=== PATIENT | female | born 1970 | race Hispanic/Latino ===

== ENCOUNTER 2018-11-16 15:27 | Emergency (ER) | payer SELFPAY ==
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
[2018-11-16 17:13] LABS: Absolute Lymphocytes (CBC) 2.3 K/uL (0.7-4.9); Absolute Neutrophil 8.8 K/uL (1.8-8.0); Basophils % 0.5 % (0-1.3); Eosinophils % 0.3 % (0-4.4); Hematocrit 42.8 % (36.0-45.0); Lymphocytes % 18.7 % (15.3-44.8); MPV 8.4 fL (7.6-11.3); Monocytes % 8.3 % (3.3-12.3); RBC Red Blood Cell Count 4.32 M/uL (3.86-4.86)
--- NOTE | 2018-11-16 17:18 | RAD REPORT ---
EXAM DESCRIPTION: RAD - Hand Right 3 View - 11/16/2018 4:44 pm CLINICAL HISTORY: Right hand pain status post injury FINDINGS: No fracture or dislocation is seen.
[2018-11-16 17:26] LABS: BUN Blood Urea Nitrogen 6 mg/dL (7-18); Bicarbonate 27 mmol/L (21-32); Glucose Level 83 mg/dL (74-106); Potassium 3.6 mmol/L (3.5-5.1); Sodium Level 140 mmol/L (136-145)
[2018-11-16] MEDS ORDERED: LIDOCAINE 1% W/EPI 1:100,000 MDV 50 ML VIAL ONE (17:30)
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
[2018-11-16] MEDS ORDERED: ONDANSETRON 4 MG/2 ML VIAL ONE (17:48)
[2018-11-16] MEDS ORDERED: FENTANYL CITR 100 MCG/2 ML ONE (17:48)
== END 2018-11-16 18:18 | disposition home or self-care (01) ==
LOC: ER 15:27
DX: S60.221A Contusion of right hand, initial encounter (principal); S01.01XA Laceration without foreign body of scalp, initial encounter; S20.419A Abrasion of unspecified back wall of thorax, initial encounter; S00.31XA Abrasion of nose, initial encounter; Y04.8XXA Assault by other bodily force, initial encounter; Z72.0 Tobacco use
CPT/HCPCS: 36415; 70450; 72125; 80048; 80320; 85025; 99285; J2405; J3010

== ENCOUNTER 2019-03-03 13:04 | Emergency (ER) | payer SELFPAY ==
--- OUTSIDE RECORDS SUMMARY | 2019-03-03 13:07 | XMS REPORT ---
:1970 Author Organization [facility] Address [address] [place] [address] [address] [place] [address] Care Team Providers Name Role Phone Unavailable Unavailable Unavailable Problems This patient has no known problems. Allergies, Adverse Reactions, Alerts This patient has no known allergies or adverse reactions. Medications This patient has no known medications.
[2019-03-03 13:37] LABS: Urine Blood 1+ (NEG); Urine Glucose NEGATIVE (NEG); Urine Protein NEGATIVE (NEG); Urine Specific Gravity <1.005 (1.005-1.030)
[2019-03-03 13:50] LABS: Barbiturates NEGATIVE (NEGATIVE); Benzodiazepines POSITIVE (NEGATIVE); Cocaine NEGATIVE (NEGATIVE); METHAMPHETAM POSITIVE (NEGATIVE); Methadone NEGATIVE (NEGATIVE); Opiates NEGATIVE (NEGATIVE); Phencyclidine NEGATIVE (NEGATIVE); THC Cannibis NEGATIVE (NEGATIVE)
[2019-03-03 13:51] LABS: Protime INR 0.9
[2019-03-03 13:56] LABS: Absolute Lymphocytes (CBC) 2.7 K/uL (0.7-4.9); Absolute Monocytes 0.5 K/uL (0.1-1.3); Absolute Neutrophil 3.4 K/uL (1.8-8.0); Basophils % 0.5 % (0-1.3); Eosinophils % 0.4 % (0-4.4); Hematocrit 39.9 % (36.0-45.0); Lymphocytes % 40.7 % (15.3-44.8); MPV 8.5 fL (7.6-11.3); Monocytes % 7.9 % (3.3-12.3); RBC Red Blood Cell Count 4.11 M/uL (3.86-4.86)
--- NOTE | 2019-03-03 14:45 | RAD REPORT ---
EXAM DESCRIPTION: CT - Head Brain Wo Cont - 03/03/2019 2:23 pm CLINICAL HISTORY: H unresponsive COMPARISON: None. TECHNIQUE: Computed axial tomography of the head was obtained. IV contrast was not requested. All CT scans are performed using dose optimization technique as appropriate and may include automated exposure control or mA/KV adjustment according to patient size. FINDINGS: An intracranial bleed is not seen . The ventricles are normal in caliber. No extra-axial fluid collection is noted. Fluid within the sinuses/ mastoids is not seen. IMPRESSION: No acute intracranial abnormality is seen. If patient's symptoms persist MRI of the bra in would be recommended.
[2019-03-03 15:15] LABS: ALT/SGPT 32 U/L (12-78); AST/SGOT 6 U/L (15-37); Albumin 3.7 g/dL (3.4-5.0); Alkaline Phosphatase 53 U/L (45-117); BUN Blood Urea Nitrogen 8 mg/dL (7-18); Bicarbonate 27 mmol/L (21-32); Bilirubin Direct < 0.1 mg/dL (0-0.2); Bilirubin Total 0.2 mg/dL (0.2-1.0); Glucose Level 80 mg/dL (74-106); Potassium 3.3 mmol/L (3.5-5.1); Protein, Total 7.1 g/dL (6.4-8.2); Sodium Level 143 mmol/L (136-145)
[2019-03-03] MEDS ORDERED: IBUPROFEN 200 MG TAB PO ONE (17:38)
--- NOTE | 2019-03-03 17:46 | EKG ---
Test Date: 2019-03-03 Test Time: 13:11:52 Roving Inspector: JORGE-V MEASUREMENT RESULTS: Intervals: Rate: 90 CO: 160 QRSD: 104 QT: 362 QTc: 442 [place]: P: 59 CO: 160 QRS: 73 T: 47 INTERPRETIVE STATEMENTS: Normal sinus rhythm Normal ECG Compared to ECG 04/20/2010 12:29:40 Sinus arrhythmia no longer present Electronically Signed On 03-03-19 17:45:53 CDT by Eduard Vee
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
--- NOTE | 2019-03-03 18:01 | EDPHYS ---
Physician Documentation [facility] Name: Debo Foster Age: 48 yrs Sex: Female : 1970 Arrival Date: 03/03/2019 Time: 13:13 Bed 3 Private MD: ED Physician Warner Jansen HPI: 03/03 13:20 This 48 yrs old Female presents to ER via EMS with complaints of Unresponsive. kdr 13:20 The patient presents with decreased responsiveness. Onset: The symptoms/episode kdr began/occurred at an unknown time. Possible causes: CVA or TIA, alcohol, head injury, seizure, sepsis. Current symptoms: In the emergency department the patient's symptoms are unchanged from the initial presentation. Patient's baseline: Unknown. It is unknown whether or not the patient has had similar symptoms in the past. It is unknown whether or not the patient has recently seen a physician. The patient was found unresponsive by a dumpster with alcohol bottles nearby. The patient was previously unknown to the EMS crew. BGL 107, no response to nasal Narcan. Pupils pinpoint. No obvious signs of trauma. Historical: - Allergies: 13:19 Hydrocodone-Acetaminophen; ss - Home Meds: 13:19 Unable to obtain [Active]; ss - PMHx: 13:19 Unable to obtain; ss - PSHx: 13:19 Knee surgery; wrist; ss - Immunization history:: Adult Immunizations unknown. - Social history:: Smoking status: unknown. - Ebola Screening: : Unable to complete screening because. ROS: 13:20 Constitutional: Unable to assess due to AMS kdr 13:20 Unable to obtain ROS due to obtunded state. Exam: 13:20 Constitutional: This is a well developed, well nourished patient who is unresponsive kdr Head/Face: Normocephalic, atraumatic. 13:20 Eyes: Pupils: constricted, pinpoint. Vital Signs: 13:19 BP 102 / 69; Pulse 91; Resp 17; Pulse Ox 97% ; ss 14:02 BP 99 / 69; Pulse 88; Resp 21; Pulse Ox 98% on R/A; hb 15:00 BP 102 / 80; Pulse 94; Resp 20; Pulse Ox 99% on R/A; hb 17:00 BP 116 / 74; Pulse 82; Resp 16; Pulse Ox 99% on R/A; hb MDM: 18:00 Patient medically screened. kdr 18:11 Data reviewed: vital signs, nurses notes, lab test result(s), radiologic studies. kdr Counseling: I had a detailed discussion with the patient and/or guardian regarding: the historical points, exam findings, and any diagnostic results supporting the discharge/admit diagnosis, lab results, radiology results, the need for outpatient follow up. 03/03 13:19 Order name: Acetaminophen kdr 03/03 13:19 Order name: Basic Metabolic Panel kdr 03/03 13:19 Order name: CBC with Diff; Complete Time: 14:33 kdr 03/03 13:19 Order name: ETOH Level; Complete Time: 14:33 kdr 03/03 13:19 Order name: Hepatic Function kdr 03/03 13:19 Order name: PT-INR; Complete Time: 14:33 kdr 03/03 13:19 Order name: Ptt, Activated; Complete Time: 14:33 kdr 03/03 13:19 Order name: Salicylate; Complete Time: 14:33 kdr 03/03 13:19 Order name: Urine Drug Screen; Complete Time: 14:33 kdr 03/03 13:19 Order name: Lactate; Complete Time: 14:33 kdr 03/03 13:19 Order name: Procalcitonin; Complete Time: 14:33 kdr 03/03 13:19 Order name: Blood Culture Adult (2) kdr 03/03 13:28 Order name: Test, Serum; Complete Time: 14:33 bd 03/03 13:29 Order name: Urine Dipstick--Ancillary (enter results); Complete Time: 14:33 bd 03/03 13:19 Order name: EKG; Complete Time: 13:20 kdr 03/03 13:19 Order name: EKG - Nurse/Tech; Complete Time: 13:45 kdr 03/03 13:19 Order name: IV Saline Lock; Complete Time: 13:45 kdr 03/03 13:19 Order name: Labs collected and sent; Complete Time: 13:46 kdr 03/03 13:19 Order name: Urine Dipstick-Ancillary (obtain specimen); Complete Time: 13:46 kdr 03/03 13:19 Order name: CT Head Brain wo Cont kdr 03/03 16:30 Order name: Diet Regular; Complete Time: 16:31 ss Administered Medications: 17:32 Drug: Motrin 600 mg Route: PO; hb 18:30 Follow up: Response: No adverse reaction; Pain is decreased hb Disposition: 03/03/19 18:00 Discharged to Home. Impression: Altered mental status, unspecified - Resolved, Poly substance abuse. - Condition is Stable. - Discharge Instructions: Alcohol Intoxication, Mbmz-if-Yvtj, Alcohol Abuse and Nutrition, Alcohol Withdrawal, Uxox-st-Idzp. - Prescriptions for Ibuprofen 600 mg Oral Tablet - take 1 tablet by ORAL route every 6 hours As needed take with food; 12 tablet. - Medication Reconciliation Form, Thank You Letter form. - Follow up: Private Physician; When: 2 - 3 days; Reason: If symptoms return, Further diagnostic work-up, Recheck today's complaints, Continuance of care, Re-evaluation by your physician. - Problem is new. - Symptoms have improved. Signatures: Dispatcher [employer] EDMS Warner Jansen MD MD kdr Radha Mireles RN RN Gillian Faith RN RN Corrections: (The following items were deleted from the chart) 18:42 18:00 03/03/2019 18:00 Discharged to Home. Impression: Altered mental status, hb unspecified - Resolved; Poly substance abuse. Condition is Stable. Forms are Medication Reconciliation Form, Thank You Letter, Antibiotic Education, Prescription Opioid Use. Follow up: Private Physician; When: 2 - 3 days; Reason: If symptoms return, Further diagnostic work-up, Recheck today's complaints, Continuance of care, Re-evaluation by your physician. Problem is new. Symptoms have improved. kdr
== END 2019-03-03 18:42 | disposition home or self-care (01) ==
LOC: ER 13:04
DX: R41.82 Altered mental status, unspecified (principal); Z88.5 Allergy status to narcotic agent; F19.10 Other psychoactive substance abuse, uncomplicated
CPT/HCPCS: 36415; 51702; 70450; 80048; 80076; 80307; 80320; 80329; 81003; 83605; 84145; 84703; 85025; 85610; 85730; 87040; 93005; 99291; 99292

== ENCOUNTER 2022-09-11 21:06 | Emergency (ER) | payer SELFPAY ==
--- OUTSIDE RECORDS SUMMARY | 2022-09-11 21:09 | XMS REPORT | Continuity of Care Document ---
:[address] [facility] t Address [address] [place] [address] Care Team Providers Name Role Phone PCP, PATIENT DOES NOT HAVE A Primary Care Physician Unavaila ble Doctor Unassigned, John Day Attending Clinician Unavailable LADI GONZALES Attending Clinician Unavailable Ladi Gonzales MD Attending Clinician MICHAEL JULIEN Attending Clinician Unavailable Michael Dee Attending Clinician JONH THOMPSON Attending Clinician Unavailable RONAL GIBBS Attending Clinician Unavailable KIKA CAMPOS Attending Clinician Unavailable FORREST MASCORRO Attending Clinician Unavailable VELASQUEZ NOLASCO Attending Clinician Unavailable Tosin GOODWIN Attending Clinician Unavailable MICHAEL JULIEN Admitting Clinician Unavailable JONH THOMPSON Admitting Clinician Unavailable RONAL GIBBS Admitting Clinician Unavailable FORREST MASCORRO Admitting Clinician Unavailable VELASQUEZ NOLASCO Admitting Clinician Unavailable Tosin GOODWIN Admitting Clinician Unavailable Payers Payer Name Policy Type Policy Number Effective Date Expiration Date S ource Problems Condition Condition Condition Status Onset Resolution Last Treating Co mments Source Name Details Category Date Date Treatment Clinician Date Diverticul Diverticul Disease Active U nivers itis itis 3-10 ity of 00:00: [address] Allergies, Adverse Reactions, Alerts Allergy Allergy Status Severity Reaction(s) Onset Inactive Treating Comm ents Source Name Type Date Date Clinician NO KNOWN Drug Active Univers ALLERGIE Class ity of S [facility] Social History Social Habit Start Date Stop Date Quantity Comments Source Exposure to Not sure University of SARS-CoV-2 [place] [facility] (event) Branch Alcohol intake 2021-12-14 2021-12-14 Ex-drinker University 00:00:00 00:00:00 (finding) [facility] Tobacco use and 2021-02-01 2021-02-01 Never used Universit y of exposure 00:00:00 00:00:00 [facility] Sex Assigned At [birth year] Universit y of 00:00:00 00:00:00 [facility] Smoking Status Start Date Stop Date Source Former smoker 2021-02-01 00:00:00 2021-02-01 00:00:00 [facility] Medications Ordered Filled Start Stop Current Ordering Indication Dosage Frequency Signature Comments Components Source Medication Medication Date Date Medication? Clinician (SIG) Name Name CHLORPHENIR Yes 4mg Take 4 mg U nivers AMINE 3-13 by mouth 2 ity of MALEATE 12:08: (two) [place] ORAL 49 times Medical daily. Branch CHLORPHENIR Yes 4mg Take 4 mg U nivers AMINE 3-13 by mouth 2 ity of MALEATE 12:08: (two) [place] ORAL 49 times Medical daily. Branch CHLORPHENIR 0 Yes 4mg Take 4 mg U nivers AMINE 3-13 by mouth 2 ity of MALEATE 12:08: (two) [place] ORAL 49 times Medical daily. Branch CHLORPHENIR Yes 4mg Take 4 mg U nivers AMINE 3-13 by mouth 2 ity of MALEATE 12:08: (two) [place] ORAL 49 times Medical daily. Branch lisinopriL Yes [id number] 10mg Take 1 Univers 10 mg 3-13 tablet by ity of tablet 00:00: mouth at [place] [address] bedtime. Medical Branch lisinopriL 2020-0 Yes [id number] 10mg Take 1 Univers 10 mg 3-13 tablet by ity of tablet 00:00: mouth at [place] [address] bedtime. Medical Branch lisinopriL 2020-0 Yes [id number] 10mg Take 1 Univers 10 mg 3-13 tablet by ity of tablet 00:00: mouth at [place] [address] bedtime. Medical Branch lisinopriL Yes [id number] 10mg Take 1 Univers 10 mg 3-13 tablet by ity of tablet 00:00: mouth at [place] 00 bedtime. Medical [place] Vital Signs Vital Name Observation Time Observation Value Comments Source Systolic blood 2021-12-14 15:27:00 124 mm[Hg] Univer sity of pressure [facility] Diastolic blood 2021-12-14 15:27:00 88 mm[Hg] Unive rsity of [facility] Heart rate 2021-12-14 15:27:00 100 /min [facility] Respiratory rate 2021-12-14 15:27:00 18 /min [facility] weight 2021-12-14 15:27:00 56.7 kg [facility] BMI 2021-12-14 15:27:00 24.41 kg/m2 [facility] Oxygen saturation in 2021-12-14 15:27:00 99 /min [facility] Arterial blood by [facility] Pulse oximetry [place] Procedures Procedure Date / Time Performing Clinician Source Performed AUTHORIZATION FOR 2022-01-23 06:01:00 Doctor Unassigned, No [facility] OP CLINIC NOTES/CONSULTS 2021-12-14 06:01:00 Doctor Unassigned, No [facility] Encounters Start End Encounter Admission Attending Care Care Encounter Source Date/Time Date/Time Type Type Clinicians Facility Department ID 2022-01-23 2022-01-23 Orders Doctor DIAS [id number] Univers 00:00:00 00:00:00 Only Unassigned, MISAEL [id number] ity [facility] [id number] Reji as [phone] [place] [address] Branch 2021-12-14 2021-12-14 Outpatient R RITA [facility] [id number] Univers 09:15:00 09:30:56 LADI gandhi [facility] 2021-12-14 2021-12-14 Office ARELI Gonzales [id number] Univers 09:15:00 09:30:56 Visit Ladi [facility] [id number] it y of [place] [id number] Reji as JE?BLEA [phone] Nv anjana [address] MEDICAL OFFICE BUILDING 2021-12-14 2021-12-14 Orders Doctor LARISSA [id number] Univers 00:00:00 00:00:00 Only Unassigned, MISAEL [id number] ity of [facility] [id number] Reji as [id number] [facility] 009 Branch 2021-11-30 2021-11-30 Emergency X [facility] ERT [id number] Univers 12:04:00 13:48:00 MICHAEL [facility] 2021-11-30 2021-11-30 Emergency X [facility] ERT [id number] Univers 12:04:00 13:48:00 MICHAEL [facility] 2021-11-30 2021-11-30 Emergency [facility] [id number] Univers 12:04:00 13:48:00 Michael ELI [id number] i ty [facility] [id number] [id number] [facility] 084 Branch 2021-06-20 2021-06-20 [facility] [id number] Univers 16:43:00 19:22:00 [facility] 2021-06-20 2021-06-20 Emergency X DONNA [facility] ERT [id number] Univers 16:43:00 16:43:00 [facility] 2021-01-31 2021-02-03 Inpatient X BERNIE [facility] KRISTA [id number] Univers 16:06:00 11:56:00 RONAL [facility] 2021-01-31 2021-01-31 Emergency X EBTH [facility] ERT [id number] Univers 16:06:00 16:06:00 KIKA [facility] 2020-12-23 2020-12-23 Emergency X LUDWIN [facility] ERT [id number] Univers 04:51:00 06:12:00 FORREST [facility] 2020-04-08 2020-04-08 Emergency X GAURAV [facility] ERT [id number] Univers 09:43:35 10:42:00 VELASQUEZ [facility] 2020-02-01 2020-02-01 Emergency X Tosin GOODWIN [facility] ERT [id number] Univers 09:53:55 12:32:00 [facility] Results This patient has no known results.
--- NOTE | 2022-09-11 22:26 | RAD REPORT ---
EXAM DESCRIPTION: CT - CTHCSPWOC - 09/11/2022 10:14 pm CLINICAL HISTORY: Trauma, head and neck injury. AMS COMPARISON: Head C Spine Mpr Wo Con dated 11/16/2018 TECHNIQUE: Axial 5 mm thick images of the head were obtained. Axial 2 mm thick images of the cervical spine were obtained with sagittal and coronal reconstruction images generated and reviewed. All CT scans are performed using dose optimization technique as appropriate and may include automated exposure control or mA/KV adjustment according to patient size. FINDINGS: CT HEAD WITHOUT CONTRAST: No acute hemorrhage, hydrocephalus or extra-axial collection is identified.No areas of brain edema or midline shift. The paranasal sinuses and mastoids are clear.The calvarium is intact. CT CERVICAL SPINE WITHOUT CONTRAST: No fracture or subluxation.2 mm of anterolisthesis is seen C5 on 6, likely degenerative in etiology.N o prevertebral soft tissues swelling is identified. IMPRESSION: No acute intracranial or cervical spine findings.
[2022-09-11 22:29] LABS: Absolute Lymphocytes (CBC) 1.5 K/uL (0.7-4.9); Hematocrit 39.9 % (36.0-45.0); Lymphocytes % 16.9 % (15.3-44.8); MCV 96.9 fL (80-100); MPV 8.3 fL (7.6-11.3); RBC Red Blood Cell Count 4.12 M/uL (3.86-4.86)
[2022-09-11 22:44] LABS: ALT/SGPT 22 U/L (12-78); AST/SGOT < 3 U/L (15-37); Albumin 3.1 g/dL (3.4-5.0); Alkaline Phosphatase 75 U/L (45-117); BUN Blood Urea Nitrogen 9 mg/dL (7-18); Bicarbonate 32 mmol/L (21-32); Bilirubin Total < 0.1 mg/dL (0.2-1.0); Glomerular Filtration Rate 108 ml/min (=/>90); Glucose Level 123 mg/dL (74-106); Magnesium 2.1 mg/dL (1.8-2.4); Potassium 3.6 mmol/L (3.5-5.1); Protein, Total 6.4 g/dL (6.4-8.2); Sodium Level 141 mmol/L (136-145); Troponin High Sensitivity 5.6 pg/mL (<58.9)
[2022-09-11 22:56] LABS: Urine Blood Negative (Negative); Urine Glucose Negative (Negative); Urine Protein 1+ (Negative); Urine Specific Gravity 1.015 (1.005-1.030); Urine pH 8.5 (5.0-7.0)
[2022-09-11 23:10] LABS: Urine Bacteria <20 /HPF (<20); Urine Mucus Slight /HPF (None Seen)
[2022-09-11 23:26] LABS: Barbiturates NEGATIVE (NEGATIVE); Benzodiazepines POSITIVE (NEGATIVE); Cocaine NEGATIVE (NEGATIVE); METHAMPHETAM NEGATIVE (NEGATIVE); Methadone NEGATIVE (NEGATIVE); Opiates NEGATIVE (NEGATIVE); Phencyclidine NEGATIVE (NEGATIVE); THC Cannibis NEGATIVE (NEGATIVE)
--- NOTE | 2022-09-12 03:12 | ER ---
Nurse's Notes [facility] Name: Debo Foster Age: 52 yrs Sex: Female : 1970 Arrival Date: 09/11/2022 Time: 21:13 Bed 18 Private MD: Diagnosis: Altered mental status, unspecified;Epistaxis Presentation: 09/11 21:13 Chief complaint: EMS states: The patient was released from the [facility] and the kd3 officers called EMS for a nose bleed. On scene the patient was drowsy and confused with dilated pupils. Pt currently A\T\Ox 1. pt was hypertensive but otherwise had stable vitals in route. Coronavirus screen: Vaccine status:. Ebola Screen: No symptoms or risks identified at this time. Initial Sepsis Screen: Does the patient meet any 2 criteria? No. Patient's initial sepsis screen is negative. Does the patient have a suspected source of infection? No. Patient's initial sepsis screen is negative. Risk Assessment: Do you want to hurt yourself or someone else? Patient reports no desire to harm self or others. Onset of symptoms was September 11, 2022. 21:13 Method Of Arrival: EMS: [facility] kd3 21:13 Acuity: CELIO 3 kd3 Triage Assessment: 21:16 General: Appears in no apparent distress. Behavior is. kd3 Historical: - Allergies: 21:16 Hydrocodone-Acetaminophen; kd3 - Home Meds: 21:16 None [Active]; kd3 - PMHx: 21:16 Hypertensive disorder; kd3 - Immunization history:: Adult Immunizations unknown. - Social history:: Smoking status: unknown. Screenin:45 Abuse screen: Denies threats or abuse. Denies injuries from another. Nutritional kd3 screening: No deficits noted. Tuberculosis screening: No symptoms or risk factors identified. Fall Risk Secondary diagnosis (15 points) Mental Status- Overestimates/Forgets Limitations (15 pts.). Assessment: 21:44 General: Appears comfortable, Behavior is drowsy. Pain: Unable to use pain scale. kd3 Patient is disoriented. FLACC scale score is 0 out of 10. Respiratory: Airway is patent Trachea midline Respiratory effort is even, unlabored, Respiratory pattern is regular, symmetrical. 22:57 GI: Pt is actively vomiting. kd3 09/12 01:16 Reassessment: Patient and/or family updated on plan of care and expected duration. Pain kd3 level reassessed. Patient is alert, oriented x 3, equal unlabored respirations, skin warm/dry/pink. General: Behavior is drowsy. 03:04 General: Appears in no apparent distress. Behavior is calm, cooperative. General: pt kd3 now awake. pt was given a sandwich and a drink. . Respiratory: Airway is patent Trachea midline Respiratory effort is even, unlabored, Respiratory pattern is regular, symmetrical. Vital Signs: 09/11 21:13 BP 142 / 97; Pulse 92; Resp 23; Temp 98.2(TE); Pulse Ox 95% on R/A; kd3 22:58 Pulse 98; Resp 19; Pulse Ox 100% on R/A; kd3 23:54 BP 110 / 69; Pulse 98; Resp 19; Pulse Ox 100% on R/A; kd3 09/12 00:49 BP 115 / 81; Pulse 98; Resp 19; Pulse Ox 95% on R/A; kd3 01:12 BP 113 / 72; Pulse 94; Resp 20; Pulse Ox 98% on R/A; kd3 01:33 Pulse 87; Resp 16; Pulse Ox 100% ; kd3 01:34 BP 154 / 99; kd3 02:05 BP 120 / 74; Pulse 92; Resp 18; Pulse Ox 96% on R/A; kd3 03:04 BP 109 / 71; Pulse 82; Resp 19; Pulse Ox 100% on R/A; kd3 ED Course: 09/11 21:13 Patient arrived in ED. mw2 21:13 Sue Henson, MEAGHAN is Primary Nurse. kd3 21:16 Triage completed. kd3 21:20 Esperanza Salgado MD is Attending Physician. sd2 21:45 Patient has correct armband on for positive identification. kd3 21:45 Arm band placed on. kd3 21:45 No provider procedures requiring assistance completed. Inserted saline lock: 18 gauge kd3 in right antecubital area, using aseptic technique. Blood collected. 22:16 CT Head C Spine In Process Unspecified. EDMS 22:42 AMMONIA Sent. kd3 22:42 Procalcitonin Sent. kd3 22:42 Troponin High Sensitivity Sent. kd3 22:42 Magnesium Sent. kd3 22:42 CMP Sent. kd3 22:57 Urine Drug Screen Sent. kd3 22:57 Urine Microscopic Only Sent. kd3 Administered Medications: No medications were administered Medication: 21:46 VIS not applicable for this client. kd3 Outcome: 09/12 03:11 Discharge ordered by . [email or web address] 03:23 Patient left the ED. kd3 Signatures: Dispatcher [employer] EDNV Zaid Puente 2 Sue Henson RN RN kd3 Esperanza Salgado MD MD sd2
--- NOTE | 2022-09-12 03:12 | EDPHYS ---
Physician Documentation [facility] Name: Debo Foster Age: 52 yrs Sex: Female : 1970 Arrival Date: 09/11/2022 Time: 21:13 Bed 18 Private MD: ED Physician Esperanza Salgado HPI: 09/11 21:58 This 52 yrs old Female presents to ER via EMS with complaints of AMS. sd2 21:58 52-year-old female presents via EMS with chief complaint of epistaxis and altered sd2 mental status. She was recently released from the [facility] when EMS was called for a possible nosebleed. She was found upon their arrival to be drowsy with dilated pupils. She also was noted to be hypertensive. Her nosebleed has stopped prior to arrival. The patient is significantly drowsy while talking to me but is able to be kept awake with consistent stimulation. She denies taking any drugs or using any alcohol. She denies any areas of pain. Further history is limited at this time due to patient's mental status.. Historical: - Allergies: 21:16 Hydrocodone-Acetaminophen; kd3 - Home Meds: 21:16 None [Active]; kd3 - PMHx: 21:16 Hypertensive disorder; kd3 - Immunization history:: Adult Immunizations unknown. - Social history:: Smoking status: unknown. ROS: 21:58 ENT: Positive for epistaxis sd2 21:58 Unable to obtain ROS due to altered mental status. Exam: 21:58 Constitutional: This is a well developed, well nourished patient who is awake, alert, sd2 and in no acute distress. Head/Face: Normocephalic, atraumatic. Eyes: EOMI, normal conjunctiva bilaterally ENT: Nares patent. No nasal discharge, no septal abnormalities noted. Tympanic membranes are normal and external auditory canals are clear. Oropharynx with no redness, swelling, or masses, exudates, or evidence of obstruction, uvula midline. Mucous membranes moist. Dried blood noted to bilateral nares. Chest/axilla: Normal chest wall appearance and motion. Nontender with no deformity. Cardiovascular: Regular rate and rhythm with a normal S1 and S2. No gallops, murmurs, or rubs. 2+ distal pulses. Respiratory: Lungs have equal breath sounds bilaterally, clear to auscultation and percussion. No rales, rhonchi or wheezes noted. No increased work of breathing, no retractions or nasal flaring. Abdomen/GI: Soft, non-tender, with normal bowel sounds. No guarding or rebound. No evidence of tenderness throughout. Skin: Warm, dry with normal turgor. Normal color with no rashes, no lesions, and no evidence of cellulitis. MS/ Extremity: Pulses equal, no cyanosis. Neurovascular intact. Full, normal range of motion. Ambulatory without difficulty. 22:00 ECG was reviewed by the Attending Physician. NSR, rate 90, no STEMI criteria, sd2 incomplete RBBB present Vital Signs: 21:13 BP 142 / 97; Pulse 92; Resp 23; Temp 98.2(TE); Pulse Ox 95% on R/A; kd3 22:58 Pulse 98; Resp 19; Pulse Ox 100% on R/A; kd3 23:54 BP 110 / 69; Pulse 98; Resp 19; Pulse Ox 100% on R/A; kd3 09/12 00:49 BP 115 / 81; Pulse 98; Resp 19; Pulse Ox 95% on R/A; kd3 01:12 BP 113 / 72; Pulse 94; Resp 20; Pulse Ox 98% on R/A; kd3 01:33 Pulse 87; Resp 16; Pulse Ox 100% ; kd3 01:34 BP 154 / 99; kd3 02:05 BP 120 / 74; Pulse 92; Resp 18; Pulse Ox 96% on R/A; kd3 03:04 BP 109 / 71; Pulse 82; Resp 19; Pulse Ox 100% on R/A; kd3 MDM: 09/11 21:20 Patient medically screened. sd2 21:58 Differential Diagnosis Dehydration, electrolyte abnormality, UTI, PNA, anemia among sd2 others. Data reviewed: vital signs, nurses notes. 09/12 03:07 Data reviewed: lab test result(s), EKG, radiologic studies. Counseling: I had a sd2 detailed discussion with the patient and/or guardian regarding: the historical points, exam findings, and any diagnostic results supporting the discharge/admit diagnosis, lab results, radiology results, the need for outpatient follow up, to return to the emergency department if symptoms worsen or persist or if there are any questions or concerns that arise at home. Medical screen evaluation completed. EMTALA emergency medical condition absent. ED course: Labs and imaging reviewed. labs grossly WNCL. Trop neg. EKG with no ischemic changes. CT head negative. No signs of infectious process. UDS positive for benzos. Pt now awake and alert eating sandwich in room with no focal neuro deficits. States she does not recall being at the [facility] or being released and does not know what might have occurred. States she does not take drugs. She does take anxiety medication which she states she took prior to going to snf at her normal dosage amount. Pt with no pain or complaints at this time. Unclear etiology of patient's symptoms but patient is medically cleared for discharge and further outpatient follow up at this time. Verbalizes understanding of strict return precautions. to come pick her up.. 09/11 21:57 Order name: CBC with Diff; Complete Time: 22:37 sd2 09/11 21:57 Order name: CMP; Complete Time: 23:26 sd2 09/11 21:57 Order name: Magnesium; Complete Time: 23:26 sd2 09/11 21:57 Order name: Troponin High Sensitivity; Complete Time: 23:26 sd2 09/11 21:57 Order name: AMMONIA; Complete Time: 23:26 sd2 09/11 21:57 Order name: Procalcitonin; Complete Time: 00:23 sd2 09/11 21:57 Order name: EKG - Nurse/Tech; Complete Time: 22:00 sd2 09/11 21:57 Order name: Urine Dipstick-Ancillary (obtain specimen); Complete Time: 22:57 sd2 09/11 21:57 Order name: Urine Microscopic Only; Complete Time: 23:26 sd2 09/11 21:57 Order name: Urine Drug Screen; Complete Time: 23:52 sd2 09/11 21:57 Order name: CT Head C Spine; Complete Time: 22:37 sd2 09/11 22:57 Order name: Urine Dipstick-Ancillary; Complete Time: 23:26 EDMS Administered Medications: No medications were administered Disposition Summary: 09/12/22 03:11 Discharge Ordered Location: Home sd2 Problem: new sd2 Symptoms: are resolved sd2 Condition: Stable sd2 Diagnosis - Altered mental status, unspecified sd2 - Epistaxis sd2 Followup: sd2 - With: Private Physician - When: 2 - 3 days - Reason: Recheck today's complaints, Continuance of care, Re-evaluation by your physician Discharge Instructions: - Discharge Summary Sheet sd2 - Confusion sd2 - Nosebleed, Adult sd2 Forms: - Medication Reconciliation Form sd2 - Thank You Letter sd2 - Antibiotic Education sd2 - Prescription Opioid Use sd2 Signatures: Dispatcher [employer] Sue Hernandez RN RN kd3 Esperanza Salgado MD MD sd2
[2022-09-12 04:23] VITALS: TEMP 98.2
[2022-09-12 04:32] VITALS: BP 109/71; O2SAT 100
--- NOTE | 2022-09-12 16:14 | EKG ---
Test Date: 2022-09-11 Test Time: 21:47:54 Classics Professor: SHALOM MEASUREMENT RESULTS: Intervals: Rate: 90 OR: 180 QRSD: 102 QT: 346 QTc: 423 [place]: P: 72 OR: 180 QRS: 87 T: 67 INTERPRETIVE STATEMENTS: Normal sinus rhythm Incomplete right bundle branch block Borderline ECG Compared to ECG 03/03/2019 13:11:52 Incomplete right bundle-branch block now present Electronically Signed On 09-12-22 16:13:35 CDT by Adonis Lucas
== END 2022-09-12 03:23 | disposition home or self-care (01) ==
LOC: ER 21:06
DX: R41.82 Altered mental status, unspecified (principal); R04.0 Epistaxis; I10 Essential (primary) hypertension; Z88.5 Allergy status to narcotic agent
CPT/HCPCS: 36415; 70450; 72125; 80053; 80307; 81003; 81015; 82140; 83735; 84145; 84484; 85025; 93005; 99284

== ENCOUNTER → 2023-12-10 | Emergency (ER) | payer SELFPAY ==
[~2023-12-10] MED LIST: KETOROLAC 30 MG/ML INJ ONE
--- OUTSIDE RECORDS SUMMARY | 2023-12-10 09:03 | XMS REPORT | Continuity of Care Document ---
Author Name Unknown Address [address] [facility] [address] [place] [address] [facility] thconnect Address [address] [place] [address] Care Team Providers Care Military Professional Name Role Phone PCP, PATIENT DOES NOT HAVE A Primary Care Physic dena Unavailable NESSA SELF Attending Clinician Unavailable Nessa Self MD Attending Clinician EMILY BEDOLLA Attending Clinician Unavailable ALESHA GAMBLE Attending Clinician Unavailable JUSTINA LOCK Attending Clinician Unavailable Doctor Unassigned, [place] Attending Clinician U LADI Bowens Attending Clinician UnavailLadi Hdz MD Attending Clinician [phone] MICHAEL JULIEN Attending Clinician Unavailable Michael Dee Attending Clinician [phone] JONH THOMPSON Attending Clinician Unavailab RONAL Reilly Attending Clinician Unavailable KIKA CAMPOS Attending Clinician Unavailable FORREST MASCORRO Attending Clinician Unavailable VELASQUEZ NOLASCO Attending Clinician Unavailable Tosin GOODWIN Attending Clinician Unavailable NESSA SELF Admitting Clinician Unavailable MICHAEL JULIEN Admitting Clinician Unavailable JONH THOMPSON Admitting Clinician Unavailab RONAL Reilly Admitting Clinician Unavailable FORREST MASCORRO Admitting Clinician Unavailable VELASQUEZ NOLASCO Admitting Clinician Unavailable Tosin GOODWIN Admitting Clinician Unavailable Payers Payer Name Policy Type Policy Number Effective Date Expirati on Date Source [employer]WORK [id number] 2023 00:00:00 [employer] 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 9 [id number] 2023 00:00:00 Problems Condition Name Condition Details Condition Category Status Onset Date Resolution Date Last Treatment Date Treating Clinician Comments Source Diverticul itis Diverticul itis Disease Active 310 00:00: 00 [facility] Allergies, Adverse Reactions, Alerts Allergy Name Allergy Type Status Severity Reaction(s) Onset Date Inactive Date Treating Clinician Comments Source NO KNOWN ALLERGIE S Drug Class Active [facility] Social History Social Habit Start Date Stop Date Quantity Comments Source History of tobacco use Current smoker [facility] Sexual orientation [facility] Exposure to SARS-CoV-2 (event) Not sure [facility] Gender identity Xenia Cade - External Alcohol Comment 2023-02-17 00:00:00 2023-02-17 00:00:00 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 Funmi Cade - External Alcohol intake 2023-02-17 00:00:00 2023-02-17 00:00:00 Ex-drinker (finding) Funmi Cade - External History of Social function 2021-12-14 00:00:00 2021-12-14 00:00:00 [facility] Tobacco use and exposure 2021-02-01 00:00:00 2021-02-01 00:00:00 Smokeless tobacco non-user [facility] Sex Assigned At 1970 00:00:00 1970 00:00:00 Funmi Cade - External Smoking Status Start Date Stop Date Source Never smoked tobacco Funmi Cade - External Ex-smoker 2021-02-01 00:00:00 2021-02-01 00:00:00 U [facility] Medications Ordered Medication Name Filled Medication Name Start Date Stop Date Current Medication? Ordering Clinician Indication Dosage Frequency Signature (SIG) Comments Components Source albuterol (PROVENTIL) 2.5 mg /3 mL (0.083 %) nebulizer solution 5 mg 2022-11 205 15:30: 00 10-28 14:34 :00 No 5mg 5 mg, Inhalation , ONCE, 1 dose, On Fri10/28/23 at 0930, [facility] albuterol (PROVENTIL) 2.5 mg /3 mL (0.083 %) nebulizer solution 2.5 mg 2022-11 15:00: 00 10-28 14:12 :00 No 2.5mg 2.5 mg, Inhalation , ONCE, 1 dose, On Fri10/28/23 at 0900, [facility] ipratropium (ATROVENT) 0.02 % nebulizer solution 0.5 mg 2022-11 15:00: 00 10-28 14:12 :00 No .5mg 0.5 mg, Inhalation , ONCE, 1 dose, On Fri10/28/23 at 0900, [facility] predniSONE (DELTASONE) tablet 60 mg 2022-11 14:15: 00 10-28 14:10 :00 No 60mg 60 mg, Oral, ONCE, 1 dose, On Fri10/28/23 at 0815, [facility] albuterol 90 mcg/actuati on inhaler 2022-11 00:00: 00 Yes [id number] 2{puff} Inhale 2 Puffs every 4 (four) hours as needed for Wheezing or Shortness of Breath. [facility] methylPREDN ISolone (MEDROL, CHARLI,) 4 mg tablets 2022-11 00:00: 00 Yes [id number] Take by mouth SEE-INSTRU CTIONS. follow package directions [facility] benzonatate 100 mg capsule 2022-11 00:00: 00 Yes [id number] 100mg Take 1 capsule by mouth 3 (three) times daily as needed for Cough. [facility] ALPRAZolam (XANAX) tablet 1 mg 2022-11 16:00: 00 10-23 16:08 :00 No 1mg 1 mg, Oral, ONCE, 1 dose, On Fri10/23/23 at 1000, [facility] Lisinopril 10 MG oral Tablet 03-17 12:25: 20 03-17 00:00 :00 No 10mg Take 10 mg by mouth daily Funmi Brownleea mary Albuterol HFA 108 (90 Base) MCG/ACT IN AERS 03-17 12:25: 20 03-17 00:00 :00 No 2{puff} Q.25D Inhale 2 puffs into the lungs every 6 hours as needed Funmi Deleon Externa l Albuterol HFA 108 (90 Base) MCG/ACT IN AERS 03-17 00:00: 00 Yes [id number] 2{puff} Q.25D Inhale 2 puffs into the lungs every 6 hours as needed Funmi Brownleea mary Lisinopril 10 MG oral Tablet 03-17 00:00: 00 Yes [id number] 10mg Take 1 tablet (10 mg total) by mouth daily Funmi Brownleea mary hydrOXYzine HCl 25 MG oral Tablet 03-17 00:00: 00 Yes [id number] 25mg Q.[id number] 3D Take 1 tablet (25 mg total) by mouth every 8 hours as needed for itching or anxiety Funmi Brownleea mary Albuterol HFA 108 (90 Base) MCG/ACT IN AERS 03-17 00:00: 00 Yes [id number] 2{puff} Q.25D Inhale 2 puffs into the lungs every 6 hours as needed Funmi hernandez Lisinopril 10 MG oral Tablet 03-17 00:00: 00 Yes [id number] 10mg Take 1 tablet (10 mg total) by mouth daily Funmi Deleon Externa mary hydrOXYzine HCl 25 MG oral Tablet 03-17 00:00: 00 Yes [id number] 25mg Q.[id number] 3D Take 1 tablet (25 mg total) by mouth every 8 hours as needed for itching or anxiety Funmi Brownleea mary QUEtiapine Fumarate (SEROQUEL OR) 02-17 16:49: 58 Yes 75mg Take 75 mg by mouth every night at bedtime Funmi hernandez QUEtiapine Fumarate (SEROQUEL OR) 02-17 16:49: 58 Yes 75mg Take 75 mg by mouth every night at bedtime Funmi hernandez Aripiprazol e 15 MG oral Tablet 02-17 16:48: 57 Yes 1{tbl} Take 1 tablet by mouth daily Funmi hernandez Aripiprazol e 15 MG oral Tablet 02-17 16:48: 57 Yes 1{tbl} Take 1 tablet by mouth daily Funmi hernandez CHLORPHENIR AMINE MALEATE ORAL 02-03 12:08: 49 Yes 4mg Take 4 mg by mouth 2 (two) times daily. [facility] CHLORPHENIR AMINE MALEATE ORAL 02-03 12:08: 49 Yes 4mg Take 4 mg by mouth 2 (two) times daily. [facility] CHLORPHENIR AMINE MALEATE ORAL 02-03 12:08: 49 Yes 4mg Take 4 mg by mouth 2 (two) times daily. [facility] CHLORPHENIR AMINE MALEATE ORAL 02-03 12:08: 49 Yes 4mg Take 4 mg by mouth 2 (two) times daily. [facility] CHLORPHENIR AMINE MALEATE ORAL 02-03 12:08: 49 Yes 4mg Take 4 mg by mouth 2 (two) times daily. [facility] CHLORPHENIR AMINE MALEATE ORAL 02-03 12:08: 49 Yes 4mg Take 4 mg by mouth 2 (two) times daily. [facility] lisinopriL 10 mg tablet 02-03 00:00: 00 Yes [id number] 10mg Take 1 tablet by mouth at bedtime. [facility] lisinopriL 10 mg tablet 02-03 00:00: 00 Yes [id number] 10mg Take 1 tablet by mouth at bedtime. [facility] lisinopriL 10 mg tablet 02-03 00:00: 00 Yes [id number] 10mg Take 1 tablet by mouth at bedtime. [facility] lisinopriL 10 mg tablet 0 02-03 00:00: 00 Yes [id number] 10mg Take 1 tablet by mouth at bedtime. [facility] lisinopriL 10 mg tablet 02-03 00:00: 00 Yes [id number] 10mg Take 1 tablet by mouth at bedtime. [facility] lisinopriL 10 mg tablet 02-03 00:00: 00 Yes [id number] 10mg Take 1 tablet by mouth at bedtime. [facility] Vital Signs Vital Name Observation Time Observation Value Comments S ource Heart rate 2023-10-28 15:25:00 107 /min [facility] Body temperature 2023-10-28 15:25:00 36.89 Kell [facility] Respiratory rate 2023-10-28 15:25:00 18 /min [facility] Oxygen saturation in Arterial blood by Pulse oximetry 2023-10-28 15:25:00 93 /min [facility] Systolic blood pressure 2023-10-28 15:00:00 107 mm[Hg] [facility] Diastolic blood pressure 2023-10-28 15:00:00 83 mm[Hg] [facility] Body height 2023-10-28 13:58:00 160 cm [facility] Body weight 2023-10-28 13:58:00 63.504 kg [facility] BMI 2023-10-28 13:58:00 24.80 kg/m2 [facility] Systolic blood pressure 2023-10-23 15:28:00 138 mm[Hg] [facility] Diastolic blood pressure 2023-10-23 15:28:00 96 mm[Hg] [facility] Heart rate 2023-10-23 15:28:00 102 /min [facility] Body temperature 2023-10-23 15:28:00 37 Kell [facility] Respiratory rate 2023-10-23 15:28:00 18 /min [facility] Body height 2023-10-23 15:28:00 152.4 cm [facility] Body weight 2023-10-23 15:28:00 63.504 kg [facility] BMI 2023-10-23 15:28:00 27.34 kg/m2 [facility] Oxygen saturation in Arterial blood by Pulse oximetry 2023-10-23 15:28:00 96 /min [facility] Systolic blood pressure 2021-12-14 15:27:00 124 mm[Hg] [facility] Diastolic blood pressure 2021-12-14 15:27:00 88 mm[Hg] [facility] Heart rate 2021-12-14 15:27:00 100 /min [facility] 2021-12-14 15:27:00 18 /min [facility] Body weight 2021-12-14 15:27:00 56.7 kg [facility] BMI 2021-12-14 15:27:00 24.41 kg/m2 [facility] Oxygen saturation in Arterial blood by Pulse oximetry 2021-12-14 15:27:00 99 /min [facility] Procedures Procedure Date / Time Performed Performing Clinician Source XR CHEST 1 VW 2023-10-28 15:17:50 Nessa Self [facility] RAPID INFLUENZA A/B 2023-10-28 14:13:00 Nessa Self [facility] COVID-19 (ID NOW RAPID TESTING) 2023-10-28 14:13:00 Nessa Self [facility] CONSENT/REFUSAL FOR DIAGNOSIS AND TREATMENT 2023-10-28 13:54:52 Doctor Unassigned, [place] [facility] ASSIGNMENT OF BENEFITS 2023-10-23 16:33:05 Docto r Unassigned, [place] [facility] RAPID STREP SCREEN FOR GROUP A 2023-10-23 16:09:00 Alesha Gamble [facility] RAPID INFLUENZA A/B 2023-10-23 16:09:00 Keara Gamble [facility] COVID-19 (ID NOW RAPID TESTING) 2023-10-23 16:09:00 Alesha Gamble [facility] CONSENT/REFUSAL FOR DIAGNOSIS AND TREATMENT 2023-10-23 15:22:28 Doctor Unassigned, [place] [facility] AUTHORIZATION FOR RELEASE OF PHI 2022-01-23 06:01:00 Doctor Unassigned, [place] [facility] OP CLINIC NOTES/CONSULTS 2021-12-14 06:01:00 Doc tor Unassigned, [place] [facility] Encounters Start Date/Time End Date/Time Encounter Type Admission Type Attending [facility] Facility Care Department Encounter ID Source 2023-10-28 08:00:00 2023-10-28 09:49:00 Emergency [facility] [id number] [facility] 2023-10-28 08:00:00 2023-10-28 09:49:00 Emergency Nessa Self [facility] [id number] [facility] 2023-10-28 00:00:00 2023-10-28 00:00:00 Outpatient EMILY BEDOLLA [id number] Fun[facility] 2023-10-23 09:29:00 2023-10-23 11:58:00 Emergency X [facility] [id number] [facility] 2023-10-23 09:29:00 2023-10-23 11:58:00 Emergency Harry Gambleine [facility] [id number] [facility] 2023-10-08 00:00:00 2023-10-08 00:00:00 Outpatient JUSTINA LOCK [id number] Funmi Cade 2023-06-05 10:34:04 2023-06-05 10:34:04 Outpatient MARGARETTE PFEIFFER [id number] Tee Trujillo 2023-04-07 00:00:00 2023-04-07 00:00:00 Outpatient EMILY BEDOLLA FUNMI [id number] Funmi [facility] 2023-03-17 12:00:00 2023-03-17 12:00:00 Outpatient EMILY [facility]EDOLLA [facility] [id number] [facility] 2023-03-17 11:45:00 2023-03-17 11:45:00 Outpatient EMILY BEDOLLA FUN[facility] [id number] [facility] 2023-02-18 14:15:00 2023-02-18 14:15:00 Outpatient JUSTINA LOCK FUN[facility] [id number] [facility] 2023-01-01 15:30:00 2023-01-01 15:30:00 Outpatient JUSTINA LOCKIGGY MESSINA [id number] Funmi [facility] 2022-12-25 13:45:00 2022-12-25 13:45:00 Outpatient JUSTINA LOCK FUNMI [id number] [facility] 2022-12-06 16:38:33 2022-12-06 16:38:33 Outpatient SFA [id number] Tee F Ronnie 2022-10-31 11:39:23 2022-10-31 11:39:23 Outpatient SFA [id number] Tee Carvajal Ronnie 2022-01-23 00:00:00 2022-01-23 00:00:00 Orders Only Doctor Unassigned, [place] [facility] ..840.114 [id number] [id number] [id number] [facility] 2021-12-14 09:15:00 2021-12-14 09:30:56 Outpatient LADI DELGADO [facility] [id number] [facility] 2021-12-14 09:15:00 2021-12-14 09:30:56 Office Visit Ladi Gonzales [facility] 1..840.114 [id number] [id number] [id number] [facility] 2021-12-14 00:00:00 2021-12-14 00:00:00 Orders Only Doctor Unassigned, [place] [facility] [id number] [id number] [id number] [id number] [facility] 2021-11-30 12:04:00 2021-11-30 13:48:00 Emergency X MICHAEL [facility]ULIEN [facility] [id number] [facility] 2021-11-30 12:04:00 2021-11-30 13:48:00 Emergency X MICHAEL [facility]ULIEN [facility] [id number] [facility] 2021-11-30 12:04:00 2021-11-30 13:48:00 Emergency Michael Julien [facility] 1..840.114 [id number] [id number] [id number] [facility] 2021-06-20 16:43:00 2021-06-20 19:22:00 Emergency X JONH THOMPSON [facility] [id number] [facility] 2021-06-20 16:43:00 2021-06-20 16:43:00 Emergency X JONH [facility]OMPSON [facility] [id number] [facility] 2021-01-31 16:06:00 2021-02-03 11:56:00 Inpatient X RONAL GIBBS [facility] KRISTA [id number] [facility] 2021-01-31 16:06:00 2021-01-31 16:06:00 Emergency X KIKA CAMPOS [facility] [id number] [facility] 2020-12-23 04:51:00 2020-12-23 06:12:00 Emergency X FORREST MASCORRO [facility] [id number] [facility] 2020-04-08 09:43:35 2020-04-08 10:42:00 Emergency X VELASQUEZ NOLASCO [facility] [id number] [facility] 2020-02-01 09:53:55 2020-02-01 12:32:00 Emergency X Tosin GOODWIN [facility] [id number] [facility]
--- NOTE | 2023-12-10 10:45 | RAD REPORT ---
EXAM DESCRIPTION: RAD - Knee Right 3 View - 12/10/2023 10:26 am CLINICAL HISTORY: PAIN COMPARISON: No comparisons TECHNIQUE: Right knee, 3 views. FINDINGS: No fracture, dislocation or periosteal reaction.Large joint effusion. Ill-defined hyperden sities in the suprapatellar joint space. Advanced degenerative changes with joint space narrowing mos t notable laterally. No soft tissue abnormality. Clinical concerns for internal derangement or occult bony injury could be further assessed with MR im aging. IMPRESSION: Large joint effusion with ill-defined radiodensities within the suprapatellar joint spac e, could relate to mineralized loose bodies or other heterotopic opacification. Advanced degenerative changes of the knee.
--- NOTE | 2023-12-10 11:02 | EDPHYS ---
Physician Documentation [facility] Name: Debo Foster Age: 53 yrs Sex: Female : 1970 Arrival Date: 12/10/2023 Time: 09:00 Bed 14 Private MD: ED Physician Russel Jones HPI: 12/10 09:31 This 53 yrs old Female presents to ER via Unassigned with complaints of Knee rt Pain. 09:31 Patient presents to the ED with right knee pain starting yesterday. She has had surgery rt on the knee previously. She states that she has been walking more. Reports swelling, pain to the area. Denies other acute complaints at this time, symptoms are moderate in severity, aching nature, nonradiating, no other aggravating alleviating factors.. Historical: - Allergies: 09:12 Hydrocodone-Acetaminophen; ll1 - PMHx: 09:12 Hypertensive disorder; ll1 - Immunization history:: Adult Immunizations up to date. - Social history:: Smoking status: Patient reports the use of cigarette tobacco products, smokes one pack cigarettes per day. - Family history:: not pertinent. ROS: 09:31 Constitutional: Negative for fever, chills, and weight loss, Cardiovascular: Negative rt for chest pain, palpitations, and edema, Respiratory: Negative for shortness of breath, cough, wheezing, and pleuritic chest pain, Abdomen/GI: Negative for abdominal pain, nausea, vomiting, diarrhea, and constipation, Skin: Negative for injury, rash, and discoloration, Neuro: Negative for headache, weakness, numbness, tingling, and seizure, Psych: Negative for depression, anxiety, suicide ideation, homicidal ideation, and hallucinations, 09:31 MS/extremity: Positive for pain, swelling, Exam: 09:31 Constitutional: This is a well developed, well nourished patient who is awake, alert, rt and in no acute distress. Head/Face: Normocephalic, atraumatic. Chest/axilla: Normal chest wall appearance and motion. Nontender with no deformity. No lesions are appreciated. Cardiovascular: Regular rate and rhythm with a normal S1 and S2. No gallops, murmurs, or rubs. Normal PMI, no JVD. No pulse deficits. Respiratory: Lungs have equal breath sounds bilaterally, clear to auscultation and percussion. No rales, rhonchi or wheezes noted. No increased work of breathing, no retractions or nasal flaring. Abdomen/GI: Soft, non-tender, with normal bowel sounds. No distension or tympany. No guarding or rebound. No evidence of tenderness throughout. Skin: Warm, dry with normal turgor. Normal color with no rashes, no lesions, and no evidence of cellulitis. Neuro: Awake and alert, GCS 15, oriented to person, place, time, and situation. Cranial nerves II-XII grossly intact. Motor strength 5/5 in all extremities. Sensory grossly intact. Cerebellar exam normal. Normal gait. Psych: Awake, alert, with orientation to person, place and time. Behavior, mood, and affect are within normal limits. 09:31 Musculoskeletal/extremity: Swelling with tenderness noted to the suprapatellar area to the left, no appreciable joint swelling. No erythema noted. Patient is able to bend knee but with pain. Tenderness diffusely. No other swelling, tenderness. Pulses, motor, sensation intact. Vital Signs: 09:13 BP 129 / 104; Pulse 95; Resp 18; Pulse Ox 98% on R/A; Pain 10/10; ld1 09:29 Temp 97.9(O); ld1 09:13 Pain Scale: Adult ld1 MDM: 09:15 Patient medically screened. rt 12/10 09:20 Order name: Knee Right 3 View XRAY; Complete Time: 10:56 rt Administered Medications: 09:34 Drug: Ketorolac IM 15 mg IM once Route: IM; Site: right gluteus; ld1 Disposition Summary: 12/10/23 11:02 Discharge Ordered Notes: Location: Home rt Problem: new rt Symptoms: have improved rt Condition: Stable rt Diagnosis - Effusion, right knee rt Followup: rt - With: Aurelio Barnett MD - When: 5 - 6 days - Reason: Discharge Instructions: - Discharge Summary Sheet rt - Knee Effusion rt - Knee Arthrocentesis rt Forms: - Medication Reconciliation Form rt - Thank You Letter rt - Antibiotic Education rt - Prescription Opioid Use rt - Patient Portal Instructions rt - Leadership Thank You Letter rt Prescriptions: - Tramadol 50 mg Oral Tablet - take 1 tablet ORAL route every 8 hours as needed; 12 tablet; Refills: 0, rt Product Selection Permitted - Prednisone 20 mg Oral Tablet - take 2 tablets ORAL route once daily for 5 days; 10 tablet; Refills: 0, Product rt Selection Permitted Signatures: Dispatcher [employer] Katty Narvaez RN RN ll1 Cynthia Donnelly RN RN ld1 Russel Jones MD MD rt
--- NOTE | 2023-12-10 11:02 | ER ---
Nurse's Notes [facility] Name: Debo Foster Age: 53 yrs Sex: Female : 1970 Arrival Date: 12/10/2023 Time: 09:00 Bed 14 Private MD: Diagnosis: Effusion, right knee Presentation: 12/10 09:35 Chief complaint: Patient states: pain to right knee X 1 day. Coronavirus screen: At ld1 this time, the client does not indicate any symptoms associated with coronavirus-19. Ebola Screen: No symptoms or risks identified at this time. Initial Sepsis Screen: Does the patient meet any 2 criteria? No. Patient's initial sepsis screen is negative. Does the patient have a suspected source of infection? No. Patient's initial sepsis screen is negative. Risk Assessment: Do you want to hurt yourself or someone else? Patient reports no desire to harm self or others. Onset of symptoms was December 10, 2023. 09:35 Method Of Arrival: Ambulatory ld1 09:35 Acuity: CELIO 4 ld1 Triage Assessment: 09:35 General: Appears in no apparent distress. uncomfortable, Behavior is cooperative, ld1 anxious. Historical: - Allergies: 09:12 Hydrocodone-Acetaminophen; ll1 - PMHx: 09:12 Hypertensive disorder; ll1 - Immunization history:: Adult Immunizations up to date. - Social history:: Smoking status: Patient reports the use of cigarette tobacco products, smokes one pack cigarettes per day. - Family history:: not pertinent. Screenin:13 [facility] ED Fall Risk Assessment (Adult) History of falling in the last 3 months, ld1 including since admission No falls in past 3 months (0 pts). Abuse screen: Denies threats or abuse. Denies injuries from another. Nutritional screening: No deficits noted. Tuberculosis screening: No symptoms or risk factors identified. Assessment: 09:13 General: Appears in no apparent distress. uncomfortable, Behavior is cooperative, ld1 anxious. Pain: Complains of pain in right knee Pain does not radiate. Pain currently is 10 out of 10 on a pain scale. Quality of pain is described as throbbing, Pain began suddenly. Neuro: Level of Consciousness is awake, alert, obeys commands, Oriented to person, place, time, situation. Cardiovascular: Capillary refill < 3 seconds Patient's skin is warm and dry. Respiratory: Airway is patent Respiratory effort is even, unlabored. GI: Abdomen is flat, non-distended. : No signs and/or symptoms were reported regarding the genitourinary system. EENT: No signs and/or symptoms were reported regarding the EENT system. Derm: No signs and/or symptoms reported regarding the dermatologic system. Musculoskeletal: No signs and/or symptoms reported regarding the musculoskeletal system. Vital Signs: 09:13 BP 129 / 104; Pulse 95; Resp 18; Pulse Ox 98% on R/A; Pain 10/10; ld1 09:29 Temp 97.9(O); ld1 09:13 Pain Scale: Adult ld1 ED Course: 09:03 Patient arrived in ED. rg4 09:05 Russel Jones MD is Attending Physician. rt 09:11 Cynthia Donnelly, MEAGHAN is Primary Nurse. ld1 09:12 Arm band placed on Patient placed in an exam room, on a stretcher. ll1 09:13 Patient has correct armband on for positive identification. Placed in gown. Bed in low ld1 position. Call light in reach. Side rails up X2. Pulse ox on. NIBP on. Door closed. Noise minimized. Warm blanket given. 09:13 No provider procedures requiring assistance completed. ld1 09:35 Triage completed. ld1 10:28 Knee Right 3 View XRAY In Process Unspecified. EDMS 11:01 Aurelio Barnett MD is Referral Physician. rt 11:22 Patient did not have IV access during this emergency room visit. ld1 Administered Medications: 09:34 Drug: Ketorolac IM 15 mg IM once Route: IM; Site: right gluteus; ld1 Medication: 09:13 VIS not applicable for this client. ld1 Outcome: 11:02 Discharge ordered by . rt 11:22 Discharged to home with crutches, with family, ld1 11:22 Condition: stable 11:22 Discharge instructions given to patient, Instructed on discharge instructions, follow up and referral plans. medication usage, Demonstrated understanding of instructions, follow-up care, medications, Prescriptions given X 2, 11:22 Patient left the ED. ld1 Signatures: Dispatcher [employer] EDNJ Socorro Bhat rg4 Katty Leiva RN RN 1 Cynthia Donnelly RN RN ld1 Russel Jones MD MD rt
[2023-12-10 11:58] VITALS: BP 129/104; TEMP 97.9; O2SAT 98
== END ==
LOC: ER 09:00
DX: M25.461 Effusion, right knee (principal)

== ENCOUNTER → 2024-01-10 | Emergency (ER) | payer OTHER, SELFPAY ==
--- OUTSIDE RECORDS SUMMARY | 2024-01-10 12:50 | XMS REPORT | Continuity of Care Document ---
Author Name Unknown Address [address] [place] [address] [facility] thconnect Address [address] [place] [address] Care Team Providers Care Produce Production Team Member Name Role Phone PCP, PATIENT DOES NOT HAVE A Primary Care Physic dena Unavailable DERIK MAHER Attending Clinician Unavailab NESSA Wolf Attending Clinician Unavailable Nessa Self MD Attending Clinician [phone] EMILY BEDOLLA Attending Clinician Unavailable ALESHA GAMBLE Attending Clinician Unavailable JUSTINA LOCK Attending Clinician Unavailable Doctor Unassigned, [place] Attending Clinician U pazailLADI Campa Attending Clinician UnavailLadi Hdz MD Attending Clinician [phone] MICHAEL JULIEN Attending Clinician Unavailable Michael Dee Attending Clinician [phone] JONH THOMPSON Attending Clinician Unavailab RONAL Reilly [...] Number Effective Date Expirati on Date Source 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 9 [id number] 2023 00:00:00 Problems Condition Name Condition Details Condition Category Status Onset Date Resolution Date Last Treatment Date Treating Clinician Comments Source Diverticul itis Diverticul itis Disease Active 310 00:00: 00 [facility] Allergies, Adverse Reactions, Alerts Allergy Name Allergy Type Status Severity Reaction(s) Onset Date Inactive Date Treating Clinician Comments Source NO KNOWN ALLERGIE S Drug Class Active [facility] Social History Social Habit Start Date Stop Date Quantity Comments Source History of tobacco use Current smoker [facility] Sexual orientation [facility] Exposure to SARS-CoV-2 (event) Not sure [facility] Gender identity Xenia Cade - External Alcohol Comment 2023-02-17 00:00:00 2023-02-17 00:00:00 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 Funmi Cade - External Alcohol intake 2023-02-17 00:00:00 2023-02-17 00:00:00 Ex-drinker (finding) Funmi Cade - External History of Social function 2021-12-14 00:00:00 2021-12-14 00:00:00 [facility] Tobacco use and exposure 2021-02-01 00:00:00 2021-02-01 00:00:00 Smokeless tobacco non-user [facility] Sex Assigned At 1970 00:00:00 1970 00:00:00 Funmi Cade - External Smoking Status Start Date Stop Date Source Never smoked tobacco Funmi Deleon External Ex-smoker 2021-02-01 00:00:00 2021-02-01 00:00:00 [facility] Medications Ordered Medication Name Filled Medication Name Start Date Stop Date Current Medication? Ordering Clinician Indication Dosage Frequency Signature (SIG) Comments Components Source albuterol (PROVENTIL) 2.5 mg /3 mL (0.083 %) nebulizer solution 5 mg 2022-11 15:30: 00 10-28 14:34 :00 No 5mg 5 mg, Inhalation , ONCE, 1 dose, On Fri10/28/23 at 0930, [facility] albuterol (PROVENTIL) 2.5 mg /3 mL (0.083 %) nebulizer solution 2.5 mg 2022-11 15:00: 00 10-28 14:12 :00 No 2.5mg 2.5 mg, Inhalation , ONCE, 1 dose, On Fri10/28/23 at 0900, [facility] ipratropium (ATROVENT) 0.02 % nebulizer solution 0.5 mg 2022-11 15:00: 00 10-28 14:12 :00 No .5mg 0.5 mg, Inhalation , ONCE, 1 dose, On Fri10/28/23 at 0900, [facility] predniSONE (DELTASONE) tablet 60 mg 2022-11 14:15: 00 10-28 14:10 :00 No 60mg 60 mg, Oral, ONCE, 1 dose, On Fri10/28/23 at 0815, [facility] albuterol 90 mcg/actuati on inhaler 2022-11 00:00: 00 Yes [id number] 2{puff} Inhale 2 Puffs every 4 (four) hours as needed for Wheezing or Shortness of Breath. [facility] methylPREDN ISolone (MEDROL, CHARLI,) 4 mg tablets 2022-11 00:00: 00 Yes [id number] Take by mouth SEE-INSTRU CTIONS. follow package directions [facility] benzonatate 100 mg capsule 2022-11 00:00: 00 Yes [id number] 100mg Take 1 capsule by mouth 3 (three) times daily as needed for Cough. [facility] ALPRAZolam (XANAX) tablet 1 mg 2022-11 16:00: 00 10-23 16:08 :00 No 1mg 1 mg, Oral, ONCE, 1 dose, On Fri10/23/23 at 1000, [facility]ANE[facility] Lisinopril 10 MG oral Tablet 03-17 12:25: 20 03-17 00:00 :00 No 10mg Take 10 mg by mouth daily Funmi Brownleea mary Albuterol HFA 108 (90 Base) MCG/ACT IN AERS 03-17 12:25: 20 03-17 00:00 :00 No 2{puff} Q.25D Inhale 2 puffs into the lungs every 6 hours as needed Funmi Deleon Externa mary Albuterol HFA 108 (90 Base) MCG/ACT IN AERS 03-17 00:00: 00 Yes [id number] 2{puff} Q.25D Inhale 2 puffs into the lungs every 6 hours as needed Funmi hernandez Lisinopril 10 MG oral Tablet 03-17 00:00: 00 Yes [id number] 10mg Take 1 tablet (10 mg total) by mouth daily Funmi hernandez hydrOXYzine HCl 25 MG oral Tablet 03-17 00:00: 00 Yes [id number] 25mg Q.[id number] 3D Take 1 tablet (25 mg total) by mouth every 8 hours as needed for itching or anxiety Funmi hernandez Albuterol HFA 108 (90 Base) MCG/ACT IN AERS 03-17 00:00: 00 Yes [id number] 2{puff} Q.25D Inhale 2 puffs into the lungs every 6 hours as needed Funmi hernandez Lisinopril 10 MG oral Tablet 03-17 00:00: 00 Yes [id number] 10mg Take 1 tablet (10 mg total) by mouth daily Funmi Brownleea mary hydrOXYzine HCl 25 MG oral Tablet 03-17 00:00: 00 Yes [id number] 25mg Q.[id number] 3D Take 1 tablet (25 mg total) by mouth every 8 hours as needed for itching or anxiety Funmi Rayo hernandez QUEtiapine Fumarate (SEROQUEL OR) 02-17 16:49: 58 Yes 75mg Take 75 mg by mouth every night at bedtime Funmi Rayo hernandez QUEtiapine Fumarate (SEROQUEL OR) 02-17 16:49: 58 Yes 75mg Take 75 mg by mouth every night at bedtime Funmi Rayo hernandez Aripiprazol e 15 MG oral Tablet 02-17 16:48: 57 Yes 1{tbl} Take 1 tablet by mouth daily Funmi Rayo hernandez Aripiprazol e 15 MG oral Tablet 02-17 16:48: 57 Yes 1{tbl} Take 1 tablet by mouth daily Funmi hernandez CHLORPHENIR AMINE MALEATE ORAL 02-03 12:08: 49 Yes 4mg Take 4 mg by mouth 2 (two) times daily. [facility] CHLORPHENIR AMINE MALEATE ORAL 02-03 12:08: 49 Yes 4mg Take 4 mg by mouth 2 (two) times daily. [facility] CHLORPHENIR AMINE MALEATE ORAL 02-03 12:08: 49 Yes 4mg Take 4 mg by mouth 2 (two) times daily. [facility] CHLORPHENIR AMINE MALEATE ORAL 02-03 12:08: 49 Yes 4mg Take 4 mg by mouth 2 (two) times daily. [facility] CHLORPHENIR AMINE MALEATE ORAL 02-03 12:08: 49 Yes 4mg Take 4 mg by mouth 2 (two) times daily. [facility] CHLORPHENIR AMINE MALEATE ORAL 02-03 12:08: 49 Yes 4mg Take 4 mg by mouth 2 (two) times daily. [facility] lisinopriL 10 mg tablet 02-03 00:00: 00 Yes [id number] 10mg Take 1 tablet by mouth at bedtime. [facility] lisinopriL 10 mg tablet 02-03 00:00: 00 Yes [id number] 10mg Take 1 tablet by mouth at bedtime. [facility] lisinopriL 10 mg tablet 02-03 00:00: 00 Yes [id number] 10mg Take 1 tablet by mouth at bedtime. [facility] lisinopriL 10 mg tablet 02-03 00:00: 00 Yes [id number] 10mg Take 1 tablet by mouth at bedtime. [facility] lisinopriL 10 mg tablet 02-03 00:00: 00 Yes [id number] 10mg Take 1 tablet by mouth at bedtime. [facility] lisinopriL 10 mg tablet 02-03 00:00: 00 Yes [id number] 10mg Take 1 tablet by mouth at bedtime. [facility] Vital Signs Vital Name Observation Time Observation Value Comments S ource Heart rate 2023-10-28 15:25:00 107 /min [facility] Body temperature 2023-10-28 15:25:00 36.89 Kell [facility] Respiratory rate 2023-10-28 15:25:00 18 /min [facility] Oxygen saturation in Arterial blood by Pulse oximetry 2023-10-28 15:25:00 93 /min [facility] Systolic blood pressure 2023-10-28 15:00:00 107 mm[Hg] [facility] Diastolic blood pressure 2023-10-28 15:00:00 83 mm[Hg] [facility] Body height 2023-10-28 13:58:00 160 cm [facility] Body weight 2023-10-28 13:58:00 63.504 kg [facility] BMI 2023-10-28 13:58:00 24.80 kg/m2 [facility] Systolic blood pressure 2023-10-23 15:28:00 138 mm[Hg] [facility] Diastolic blood pressure 2023-10-23 15:28:00 96 mm[Hg] [facility] Heart rate 2023-10-23 15:28:00 102 /min [facility] Body temperature 2023-10-23 15:28:00 37 Kell [facility] Respiratory rate 2023-10-23 15:28:00 18 /min [facility] Body height 2023-10-23 15:28:00 152.4 cm [facility] Body weight 2023-10-23 15:28:00 63.504 kg [facility] BMI 2023-10-23 15:28:00 27.34 kg/m2 [facility] Oxygen saturation in Arterial blood by Pulse oximetry 2023-10-23 15:28:00 96 /min [facility] Systolic blood pressure 2021-12-14 15:27:00 124 mm[Hg] [facility] Diastolic blood pressure 2021-12-14 15:27:00 88 mm[Hg] [facility] Heart rate 2021-12-14 15:27:00 100 /min [facility] Respiratory rate 2021-12-14 15:27:00 18 /min [facility] Body weight 2021-12-14 15:27:00 56.7 kg [facility] BMI 2021-12-14 15:27:00 24.41 kg/m2 [facility] Oxygen saturation in Arterial blood by Pulse oximetry 2021-12-14 15:27:00 99 /min [facility] Procedures Procedure Date / Time Performed Performing Clinician Source XR CHEST 1 VW 2023-10-28 15:17:50 Nessa Self [facility] RAPID INFLUENZA A/B 2023-10-28 14:13:00 Nessa Self [facility] COVID-19 (ID NOW RAPID TESTING) 2023-10-28 14:13:00 Nessa Self [facility] CONSENT/REFUSAL FOR DIAGNOSIS AND TREATMENT 2023-10-28 13:54:52 Doctor Unassigned, [place] [facility] ASSIGNMENT OF BENEFITS 2023-10-23 16:33:05 Docto r Unassigned, [place] [facility] RAPID STREP SCREEN FOR GROUP A 2023-10-23 16:09:00 Alesha Gamble [facility] RAPID INFLUENZA A/B 2023-10-23 16:09:00 Keara Gamble [facility] COVID-19 (ID NOW RAPID TESTING) 2023-10-23 16:09:00 Alesha Gamble [facility] CONSENT/REFUSAL FOR DIAGNOSIS AND TREATMENT 2023-10-23 15:22:28 Doctor Unassigned, [place] [facility] AUTHORIZATION FOR RELEASE OF PHI 2022-01-23 06:01:00 Doctor Unassigned, [place] [facility] OP CLINIC NOTES/CONSULTS 2021-12-14 06:01:00 Doc tor Unassigned, [place] [facility] Encounters Start Date/Time End Date/Time Encounter Type Admission Type Attending [facility] Care Department Encounter ID Source 2024-02-05 13:30:00 2024-02-05 13:30:00 Outpatient DERIK MAHER [id number] Funmi [facility] 2023-10-28 08:00:00 2023-10-28 09:49:00 Emergency X NESSA SELF [facility] ERT [id number] [facility] 2023-10-28 08:00:00 2023-10-28 09:49:00 Emergency YarsanismNessa brower [facility] [id number] [facility] 2023-10-28 00:00:00 2023-10-28 00:00:00 Outpatient ALEXIGEOVANIEMILY [id number] Funmi Cade 2023-10-23 09:29:00 2023-10-23 11:58:00 Emergency X ALESHA GAMBLE [facility] ERT [id number] [facility] 2023-10-23 09:29:00 2023-10-23 11:58:00 Emergency Alesha Gamble [facility] 1..840.114 [id number] [facility] 2023-10-08 00:00:00 2023-10-08 00:00:00 Outpatient JUSTINA LOCK FUN[facility] [id number] [facility] 2023-06-05 10:34:04 2023-06-05 10:34:04 Outpatient SFA [facility] [id number] [place] 2023-04-07 00:00:00 2023-04-07 00:00:00 Outpatient EMILY BEDOLLA FUNMI MESSINA [id number] [facility] 2023-03-17 12:00:00 2023-03-17 12:00:00 Outpatient EMILY BEDOLLA FUNMI MESSINA [id number] Funmi [facility] 2023-03-17 11:45:00 2023-03-17 11:45:00 Outpatient EMILY BEDOLLA FUNMI MESSINA [id number] Funmi [facility] 2023-02-18 14:15:00 2023-02-18 14:15:00 Outpatient JUSTINA LOCKIGGY MESSINA [id number] [facility] 2023-01-01 15:30:00 2023-01-01 15:30:00 Outpatient JUSTINA LOCK FUNMI MESSINA [id number] Funmi [facility] 2022-12-25 13:45:00 2022-12-25 13:45:00 Outpatient JUSTINA LOCK FUNMI MESSINA [id number] Funmi [facility] 2022-12-06 16:38:33 2022-12-06 16:38:33 Outpatient SFA [facility] [id number] Tee [place] 2022-10-31 11:39:23 2022-10-31 11:39:23 Outpatient SFA [facility] [id number] Tee [place] 2022-01-23 00:00:00 2022-01-23 00:00:00 Orders Only Doctor Unassigned, [place] [facility] [id number] [id number] [id number] [id number] [facility] 2021-12-14 09:15:00 2021-12-14 09:30:56 Outpatient R LADI SALINAS [facility] [id number] [facility] 2021-12-14 09:15:00 2021-12-14 09:30:56 Office Visit Ladi Salinas Mary [facility] 1..840.114 [id number] [id number] [id number] [facility] 2021-12-14 00:00:00 2021-12-14 00:00:00 Orders Only Doctor Unassigned, [place] [facility] 1..840.114 350.1.13.10 [id number] [id number] [facility] 2021-11-30 12:04:00 2021-11-30 13:48:00 Emergency X MICHAEL JULIEN [facility] ERT [id number] [facility] 2021-11-30 12:04:00 2021-11-30 13:48:00 Emergency X MICHAEL JULIEN [facility] ERT [id number] [facility] 2021-11-30 12:04:00 2021-11-30 13:48:00 Emergency Julien Michael R [facility] 1..840.114 [id number] [id number] [id number] [facility] 2021-06-20 16:43:00 2021-06-20 19:22:00 Emergency X JONH THOMPSON [facility] ERT [id number] [facility] 2021-06-20 16:43:00 2021-06-20 16:43:00 Emergency X JONH THOMPSON [facility] ERT [id number] [facility] 2021-01-31 16:06:00 2021-02-03 11:56:00 Inpatient X RONAL GIBBS [facility] KRISTA [id number] [facility] 2021-01-31 16:06:00 2021-01-31 16:06:00 Emergency X KIKA CAMPOS [facility] ERT [id number] [facility] 2020-12-23 04:51:00 2020-12-23 06:12:00 Emergency X FORREST MASCORRO [facility] ERT [id number] [facility] 2020-04-08 09:43:35 2020-04-08 10:42:00 Emergency X VELASQUEZ NOLASCO [facility] ERT [id number] [facility] 2020-02-01 09:53:55 2020-02-01 12:32:00 Emergency X Tosin GOODWIN [facility] ERT [id number] [facility]
[2024-01-10 13:43] LABS: SARS-CoV-2 Antigen Rapid Res Positive (Negative)
--- NOTE | 2024-01-10 14:20 | EDPHYS ---
Physician Documentation [facility] Name: Debo Foster Age: 53 yrs Sex: Female : 1970 Arrival Date: 01/10/2024 Time: 12:46 Bed DX1 Private MD: ED Physician Darren Trotter HPI: 01/10 13:45 This 53 yrs old Female presents to ER via Ambulatory with complaints of Flu kb Symptoms. 13:45 Patient is a 53-year-old female who presents for cough, congestion, sore throat, ear kb pain, headache, body aches that started 2 days ago. Denies nausea, vomiting.. Historical: - Allergies: 13:05 NKDA; rv - PMHx: 13:05 Hypertensive disorder; rv 13:06 Anxiety; rv - PSHx: 13:05 None; rv - Immunization history:: Client reports having NOT received the Covid vaccine. - Social history:: Smoking status: Patient denies any tobacco usage or history of. ROS: 13:42 Abdomen/GI: Negative for abdominal pain, nausea, vomiting, diarrhea, and constipation, kb 13:42 Constitutional: Positive for body aches, chills, fatigue, fever, malaise, 13:42 ENT: Positive for ear pain, rhinorrhea, sinus congestion, sore throat, 13:42 Respiratory: Positive for cough, 13:42 Neuro: Positive for headache, 13:42 All other systems are negative, Exam: 13:42 Constitutional: This is a well developed, well nourished patient who is awake, alert, kb and in no acute distress. Head/Face: Normocephalic, atraumatic. ENT: Moist Mucous membranes Cardiovascular: Regular rate Respiratory: Respirations even and unlabored. No increased work of breathing. Talking in full sentences Abdomen/GI: Soft, non-tender. No distention Skin: Warm, dry with normal turgor. Normal color. MS/ Extremity: Pulses equal, no cyanosis. Neurovascular intact. Full, normal range of motion. Neuro: Awake and alert, GCS 15, oriented to person, place, time, and situation. Moves all extremities. Normal gait. Vital Signs: 13:04 BP 122 / 90; Pulse 96; Resp 17; Temp 98.3(O); Pulse Ox 96% ; Weight 61.23 kg; Height 5 rv ft. 0 in. ; Pain 10/10; 13:04 Body Mass Index 26.37 (61.23 kg, 152.4 cm) rv 13:04 Pain Scale: Adult rv MDM: 12:52 Patient medically screened. kb 13:45 Differential diagnosis: flu, covid, uri, pneumonia. Data reviewed: vital signs, nurses kb notes. 14:18 I considered the following discharge prescriptions or medication management in the emergency department I discussed and recommended Over The Counter medications, Antibiotics: At this time antibiotics are not recommended. Independent interpretation of the following test(s) in the Emergency Department X-Ray: My interpretation is no infiltrates. Counseling: I had a detailed discussion with the patient and/or guardian regarding the historical points, exam findings, and any diagnostic results supporting the discharge/admit diagnosis, lab results, radiology results, the need for outpatient follow up, a family practitioner, to return to the emergency department if symptoms worsen or persist or if there are any questions or concerns that arise at home. 01/10 12:57 Order name: Strep kb 01/10 12:57 Order name: Flu; Complete Time: 13:57 kb 01/10 12:57 Order name: SARS-COV-2 Antigen Rapid; Complete Time: 13:46 kb 01/10 13:40 Order name: Throat Culture [facility] 01/10 12:57 Order name: Chest Single View XRAY; Complete Time: 14:27 kb Administered Medications: 12:57 CANCELLED (Physician Discretion): [id number] mg PO once kb 13:13 Drug: Ketorolac IM 30 mg IM once Route: IM; Site: right gluteus; nj1 Disposition Summary: 01/10/24 14:19 Discharge Ordered Notes: Location: Home kb Condition: Stable kb Diagnosis - SARS-associated coronavirus as the cause of diseases classified elsewhere kb Followup: kb - With: Emergency Department - When: As needed - Reason: Worsening of condition Followup: kb - With: Private Physician - When: 2 - 3 days - Reason: Recheck today's complaints, Continuance of care, Re-evaluation by your physician Discharge Instructions: - Discharge Summary Sheet kb - COVID-19 kb - Viral Illness, Adult kb Forms: - Medication Reconciliation Form kb - Thank You Letter kb - Antibiotic Education kb - Prescription Opioid Use kb - Patient Portal Instructions kb - Leadership Thank You Letter kb Signatures: Dispatcher [employer] Sherry Little, ANALYTICAL LAB TECHNICIAN-C ANALYTICAL LAB TECHNICIAN-Ckb Rob Donahue, RN RN rv Hyacinth Aldrich RN RN nj1 Corrections: (The following items were deleted from the chart) 12:57 12:57 Acetaminophen PO 1000 mg PO once ordered. kb kb 13:06 13:05 Allergies: Hydrocodone-Acetaminophen; rv rv
--- NOTE | 2024-01-10 14:20 | ER ---
Nurse's Notes [facility] Name: Debo Foster Age: 53 yrs Sex: Female : 1970 Arrival Date: 01/10/2024 Time: 12:46 Bed DX1 Private MD: Diagnosis: SARS-associated coronavirus as the cause of diseases classified elsewhere Presentation: 01/10 13:04 Chief complaint: Patient states: Headache, body aches, cough, malaise for 2 days. Had rv 99.5 temp yesterday. Coronavirus screen: Vaccine status: Patient reports being unvaccinated. Ebola Screen: Patient denies travel to an Ebola-affected area in the 21 days before illness onset. Initial Sepsis Screen: Does the patient meet any 2 criteria? HR > 90 bpm. No. Patient's initial sepsis screen is negative. Does the patient have a suspected source of infection? No. Patient's initial sepsis screen is negative. Risk Assessment: Do you want to hurt yourself or someone else? Patient reports no desire to harm self or others. Onset of symptoms was January 08, 2024. 13:04 Method Of Arrival: Ambulatory rv 13:04 Acuity: CELIO 3 rv Triage Assessment: 13:05 General: Appears in no apparent distress. Behavior is calm, cooperative, appropriate bp for age. Pain: Denies pain. Historical: - Allergies: 13:05 NKDA; rv - PMHx: 13:05 Hypertensive disorder; rv 13:06 Anxiety; rv - PSHx: 13:05 None; rv - Immunization history:: Client reports having NOT received the Covid vaccine. - Social history:: Smoking status: Patient denies any tobacco usage or history of. Screenin:05 [facility] ED Fall Risk Assessment (Adult) History of falling in the last 3 months, bp including since admission No falls in past 3 months (0 pts). Abuse screen: Denies threats or abuse. Denies injuries from another. Nutritional screening: No deficits noted. Tuberculosis screening: No symptoms or risk factors identified. Assessment: 13:05 General: SEE TRIAGE NOTE. bp 14:30 Reassessment: PT DC HOME AMBULATORY WITH FAMILY. bp Vital Signs: 13:04 BP 122 / 90; Pulse 96; Resp 17; Temp 98.3(O); Pulse Ox 96% ; Weight 61.23 kg; Height 5 rv ft. 0 in. ; Pain 10/10; 13:04 Body Mass Index 26.37 (61.23 kg, 152.4 cm) rv 13:04 Pain Scale: Adult rv ED Course: 12:49 Patient arrived in ED. ts1 12:51 [facility]C [facility] kb 12:51 Darren Trotter MD is Attending Physician. kb 13:05 Triage completed. rv 13:05 Patient has correct armband on for positive identification. bp 13:06 Arm band placed on right wrist. rv 13:52 Carlos Correa, RN is Primary Nurse. bp 14:20 Chest Single View XRAY In Process Unspecified. EDMS 14:30 No provider procedures requiring assistance completed. Patient did not have IV access bp during this emergency room visit. Administered Medications: 12:57 CANCELLED (Physician Discretion): [id number] mg PO once kb 13:13 Drug: Ketorolac IM 30 mg IM once Route: IM; Site: right gluteus; nj1 Medication: 13:05 VIS not applicable for this client. bp Outcome: 14:19 Discharge ordered by MD. kb 14:30 Discharged to home ambulatory, with family, bp 14:30 Condition: stable 14:30 Discharge instructions given to patient, Instructed on discharge instructions, follow up and referral plans. Demonstrated understanding of instructions, follow-up care, 14:31 Patient left the ED. bp Signatures: Dispatcher [employer] EDMS Sherry Haynes FNP-C CYBER FORENSICS ANALYST-Ckb Carlos Correa, RN MEAGHAN bp Rob Donahue RN RN rv Hyacinth Aldrich RN RN nj1 Chaparrita Garrett PAS PAS ts1 Corrections: (The following items were deleted from the chart) 13:06 13:05 Allergies: Hydrocodone-Acetaminophen; rv rv
--- NOTE | 2024-01-10 14:25 | RAD REPORT ---
EXAM DESCRIPTION: RAD - Chest Single View - 01/10/2024 2:18 pm CLINICAL HISTORY: CONGESTION COMPARISON: CHEST PA AND LAT 2 VIEW dated 07/22/2010 FINDINGS: Lines: None. Lungs: No evidence of edema or pneumonia. Pleural: No significant pleural effusions or pneumothorax. Cardiac: The heart size is within normal limits. Mediastinum: Within normal limits. Bones: No acute fractures. Other: None IMPRESSION: No acute cardiopulmonary disease.
[2024-01-10 14:40] VITALS: BP 122/90; TEMP 98.3; O2SAT 96
== END ==
LOC: ER 12:46
DX: U07.1 COVID-19 (principal); Z28.310 Unvaccinated for COVID-19
CPT/HCPCS: 36415; 71045; 87070; 87081; 87804; 87811; 96372; 99284

== ENCOUNTER → 2024-01-11 | Emergency (ER) | payer OTHER ==
--- OUTSIDE RECORDS SUMMARY | 2024-01-11 08:51 | XMS REPORT | Continuity of Care Document ---
Author Name Unknown Address [address] [facility] [address] [place] [address] [email or web address] Address [address] [facility] 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 Officer Name Role Phone PCP, PATIENT DOES NOT HAVE A Primary Care Physic dena Unavailable DERIK MAHER Attending Clinician Unavailab NESSA Wolf Attending Clinician Unavailable Nessa Self MD Attending Clinician [phone] EMILY BEDOLLA Attending Clinician Unavailable ALESHA GAMBLE Attending Clinician Unavailable JUSTINA LOCK Attending Clinician Unavailable Doctor Unassigned, Willard Attending Clinician U pazailLADI Campa Attending Clinician UnavailLadi Hdz MD Attending Clinician MICHAEL JULIEN Attending Clinician Unavailable Michael Dee Attending Clinician [phone] JONH THOMPSON Attending Clinician Unavailab RONAL Reilly [...] Number Effective Date Expirati on Date Source [facility] M[facility]ER FRANCOIS COPAY FOCUS 9 [id number] 2023 00:00:00 [employer] [id number] 2023 00:00:00 [employer] MP [facility] 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 9 [id number] 2023 00:00:00 Problems Condition Name Condition Details Condition Category Status Onset Date Resolution Date Last Treatment Date Treating Clinician Comments Source Diverticul itis Diverticul itis Disease Active 310 00:00: 00 [facility] Allergies, Adverse Reactions, Alerts Allergy Name Allergy Type Status Severity Reaction(s) Onset Date Inactive Date Treating Clinician Comments Source NO KNOWN ALLERGIE S Drug Class Active [facility] Social History Social Habit Start Date Stop Date Quantity Comments Source History of tobacco use Current smoker [facility] Sexual orientation [facility] Exposure to SARS-CoV-2 (event) Not sure [facility] Gender identity Xenia Cade - External Alcohol Comment 2023-02-17 00:00:00 2023-02-17 00:00:00 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 Funmi Cade - External Alcohol intake 2023-02-17 00:00:00 2023-02-17 00:00:00 Ex-drinker (finding) Funmi Cade - External History of Social function 2021-12-14 00:00:00 2021-12-14 00:00:00 [facility] Tobacco use and exposure 2021-02-01 00:00:00 2021-02-01 00:00:00 Smokeless tobacco non-user [facility] Sex Assigned At 1970 00:00:00 1970 00:00:00 Funmi Cade - External Smoking Status Start Date Stop Date Source Never smoked tobacco Funmi Deleon External Ex-smoker 2021-02-01 00:00:00 2021-02-01 00:00:00 [facility] Medications Ordered Medication Name Filled Medication Name Start Date Stop Date Current Medication? Ordering Clinician Indication Dosage Frequency Signature (SIG) Comments Components Source albuterol (PROVENTIL) 2.5 mg /3 mL (0.083 %) nebulizer solution 5 mg 2022-11 15:30: 00 10-28 14:34 :00 No 5mg 5 mg, Inhalation , ONCE, 1 dose, On Fri10/28/23 at 0930, [facility] albuterol (PROVENTIL) 2.5 mg /3 mL (0.083 %) nebulizer solution 2.5 mg 2022-11 15:00: 00 10-28 14:12 :00 No 2.5mg 2.5 mg, Inhalation , ONCE, 1 dose, On Fri10/28/23 at 0900, [facility] ipratropium (ATROVENT) 0.02 % nebulizer solution 0.5 mg 2022-11 15:00: 00 10-28 14:12 :00 No .5mg 0.5 mg, Inhalation , ONCE, 1 dose, On Fri10/28/23 at 0900, [facility] predniSONE (DELTASONE) tablet 60 mg 2022-11 14:15: 00 10-28 14:10 :00 No 60mg 60 mg, Oral, ONCE, 1 dose, On Fri10/28/23 at 0815, [facility] albuterol 90 mcg/actuati on inhaler 2022-11 00:00: 00 Yes [id number] 2{puff} Inhale 2 Puffs every 4 (four) hours as needed for Wheezing or Shortness of Breath. [facility] methylPREDN ISolone (MEDROL, CHARLI,) 4 mg tablets 2022-11 00:00: 00 Yes [id number] Take by mouth SEE-INSTRU CTIONS. follow package directions [facility] benzonatate 100 mg capsule 2022-11 00:00: 00 Yes [id number] 100mg Take 1 capsule by mouth 3 (three) times daily as needed for Cough. [facility] ALPRAZolam (XANAX) tablet 1 mg 2022-11 16:00: 00 10-23 16:08 :00 No 1mg 1 mg, Oral, ONCE, 1 dose, On Fri10/23/23 at 1000, PRANEETH [facility] Lisinopril 10 MG oral Tablet 03-17 12:25: [...] MCG/ACT IN AERS 03-17 00:00: 00 Yes [id number] 2{puff} Q.25D Inhale 2 puffs into the lungs every 6 hours as needed Funmi hernandez Lisinopril 10 MG oral Tablet 03-17 00:00: 00 Yes [id number] 10mg Take 1 tablet (10 mg total) by mouth daily Funmi hernandez hydrOXYzine HCl 25 MG oral Tablet 03-17 00:00: 00 Yes [id number] 25mg Q.[id number] 3D Take 1 tablet (25 mg total) by mouth every 8 hours as needed for itching or anxiety Funmi hernandez Albuterol HFA 108 (90 Base) MCG/ACT IN AERS 03-17 00:00: 00 Yes [id number] 2{puff} Q.25D Inhale 2 puffs into the lungs every 6 hours as needed Funmi hernandez Lisinopril 10 MG oral Tablet 03-17 00:00: 00 Yes [id number] 10mg Take 1 tablet (10 mg total) by mouth daily Funmi Brownleea mary hydrOXYzine HCl 25 MG oral Tablet 03-17 00:00: 00 Yes [id number] 25mg Q.[id number] 3D Take 1 tablet (25 mg total) by mouth every 8 hours as needed for itching or anxiety Funmi Rayo hernandez QUEtiapine Fumarate (SEROQUEL OR) 02-17 16:49: 58 Yes 75mg Take 75 mg by mouth every night at bedtime Funmi Raoy hernandez QUEtiapine Fumarate (SEROQUEL OR) 02-17 16:49: [...] mg by mouth 2 (two) times daily. [facility] CHLORPHENIR AMINE MALEATE ORAL 02-03 12:08: 49 Yes 4mg Take 4 mg by mouth 2 (two) times daily. [facility] CHLORPHENIR AMINE MALEATE ORAL 02-03 12:08: 49 Yes 4mg Take 4 mg by mouth 2 (two) times daily. [facility] CHLORPHENIR AMINE MALEATE ORAL 02-03 12:08: 49 Yes 4mg Take 4 mg by mouth 2 (two) times daily. [facility] CHLORPHENIR AMINE MALEATE ORAL 02-03 12:08: 49 Yes 4mg Take 4 mg by mouth 2 (two) times daily. [facility] CHLORPHENIR AMINE MALEATE ORAL 02-03 12:08: 49 Yes 4mg Take 4 mg by mouth 2 (two) times daily. [facility] lisinopriL 10 mg tablet 02-03 00:00: 00 Yes [id number] 10mg Take 1 tablet by mouth at bedtime. [facility] lisinopriL 10 mg tablet 02-03 00:00: 00 Yes [id number] 10mg Take 1 tablet by mouth at bedtime. [facility] lisinopriL 10 mg tablet 02-03 00:00: 00 Yes [id number] 10mg Take 1 tablet by mouth at bedtime. [facility] lisinopriL 10 mg tablet 02-03 00:00: 00 Yes [id number] 10mg Take 1 tablet by mouth at bedtime. [facility] lisinopriL 10 mg tablet 02-03 00:00: 00 Yes [id number] 10mg Take 1 tablet by mouth at bedtime. [facility] lisinopriL 10 mg tablet 02-03 00:00: 00 Yes [id number] 10mg Take 1 tablet by mouth at bedtime. [facility] Vital Signs Vital Name Observation Time Observation Value Comments S ource Heart rate 2023-10-28 15:25:00 107 /min [facility] Body temperature 2023-10-28 15:25:00 36.89 Kell [facility] Respiratory rate 2023-10-28 15:25:00 18 /min [facility] Oxygen saturation in Arterial blood by Pulse oximetry 2023-10-28 15:25:00 93 /min [facility] Systolic blood pressure 2023-10-28 15:00:00 107 mm[Hg] [facility] Diastolic blood pressure 2023-10-28 15:00:00 83 mm[Hg] [facility] Body height 2023-10-28 13:58:00 160 cm [facility] Body weight 2023-10-28 13:58:00 63.504 kg [facility] BMI 2023-10-28 13:58:00 24.80 kg/m2 [facility] Systolic blood pressure 2023-10-23 15:28:00 138 mm[Hg] [facility] Diastolic blood pressure 2023-10-23 15:28:00 96 mm[Hg] [facility] Heart rate 2023-10-23 15:28:00 102 /min [facility] Body temperature 2023-10-23 15:28:00 37 Kell [facility] Respiratory rate 2023-10-23 15:28:00 18 /min [facility] Body height 2023-10-23 15:28:00 152.4 cm [facility] Body weight 2023-10-23 15:28:00 63.504 kg [facility] BMI 2023-10-23 15:28:00 27.34 kg/m2 [facility] Oxygen saturation in Arterial blood by Pulse oximetry 2023-10-23 15:28:00 96 /min [facility] Systolic blood pressure 2021-12-14 15:27:00 124 mm[Hg] [facility] Diastolic blood pressure 2021-12-14 15:27:00 88 mm[Hg] [facility] Heart rate 2021-12-14 15:27:00 100 /min [facility] Respiratory rate 2021-12-14 15:27:00 18 /min [facility] Body weight 2021-12-14 15:27:00 56.7 kg [facility] BMI 2021-12-14 15:27:00 24.41 kg/m2 [facility] Oxygen saturation in Arterial blood by Pulse oximetry 2021-12-14 15:27:00 99 /min [facility] Procedures Procedure Date / Time Performed Performing Clinician Source XR CHEST 1 VW 2023-10-28 15:17:50 Nessa Self [facility] RAPID INFLUENZA A/B 2023-10-28 14:13:00 Nessa Self [facility] COVID-19 (ID NOW RAPID TESTING) 2023-10-28 14:13:00 Nessa Self [facility] CONSENT/REFUSAL FOR DIAGNOSIS AND TREATMENT 2023-10-28 13:54:52 Doctor Unassigned, Willard [facility] ASSIGNMENT OF BENEFITS 2023-10-23 16:33:05 Docto r Unassigned, Willard [facility] RAPID STREP SCREEN FOR GROUP A 2023-10-23 16:09:00 Alesha Gamble [facility] RAPID INFLUENZA A/B 2023-10-23 16:09:00 Keara Gamble [facility] COVID-19 (ID NOW RAPID TESTING) 2023-10-23 16:09:00 Alesha Gamble [facility] CONSENT/REFUSAL FOR DIAGNOSIS AND TREATMENT 2023-10-23 15:22:28 Doctor Unassigned, Willard [facility] AUTHORIZATION FOR RELEASE OF PHI 2022-01-23 06:01:00 Doctor Unassigned, Willard [facility] OP CLINIC NOTES/CONSULTS 2021-12-14 06:01:00 Doc tor Unassigned, Willard [facility] Encounters Start Date/Time End Date/Time Encounter Type Admission Type Attending [facility] Care Department Encounter ID Source 2024-02-05 13:30:00 2024-02-05 13:30:00 Outpatient DERIK MAHER [id number] Funmi [facility] 2023-10-28 08:00:00 2023-10-28 09:49:00 Emergency X NESSA SELF [facility] ERT [id number] [facility] 2023-10-28 08:00:00 2023-10-28 09:49:00 Emergency ZoroastrianismNessa brower [facility] [id number] [facility] 2023-10-28 00:00:00 2023-10-28 00:00:00 Outpatient ALEXIGEOVANIEMILY [id number] Funmi Cade 2023-10-23 09:29:00 2023-10-23 11:58:00 Emergency X ALESHA GAMBLE [facility] ERT [id number] [facility] 2023-10-23 09:29:00 2023-10-23 11:58:[address] [facility] 1..840.114 350.1.13.10 [id number] [id number] [facility] 2023-10-08 00:00:00 2023-10-08 00:00:00 Outpatient JUSTINA LOCK FUNMI [id number] [facility] 2023-06-05 10:34:04 2023-06-05 10:34:04 Outpatient SFA SFA [id number] [place] [place] 2023-04-07 00:00:00 2023-04-07 00:00:00 Outpatient EMILY BEDOLLA FUNMI MESSINA [id number] [facility] 2023-03-17 12:00:00 2023-03-17 12:00:00 Outpatient EMILY BEDOLLA FUNMI MESSINA [id number] Funmi [facility] 2023-03-17 11:45:00 2023-03-17 11:45:00 Outpatient EMILY BEDOLLA FUNMI MESSINA [id number] Funmi [facility] 2023-02-18 14:15:00 2023-02-18 14:15:00 Outpatient JUSTINA LOCKIGGY MESSINA [id number] [facility] 2023-01-01 15:30:00 2023-01-01 15:30:00 Outpatient JUSTINA LOCK FUNMI MESSINA [id number] Funmi [facility] 2022-12-25 13:45:00 2022-12-25 13:45:00 Outpatient JUSTINA LOCK FUNMI MESSINA [id number] Funmi [facility] 2022-12-06 16:38:33 2022-12-06 16:38:33 Outpatient SFA [facility] [id number] Tee [place] 2022-10-31 11:39:23 2022-10-31 11:39:23 Outpatient SFA [facility] [id number] Tee [place] 2022-01-23 00:00:00 2022-01-23 00:00:00 Orders Only Doctor Unassigned, Willard [facility] [id number] [id number] [id number] [id number] [facility] 2021-12-14 09:15:00 2021-12-14 09:30:56 Outpatient R LADI SALINAS [facility] [id number] [facility] 2021-12-14 09:15:00 2021-12-14 09:30:56 Office Visit Ladi Salinas Mary [facility] 1..840.114 350.1.13.10 [id number] [id number] [facility] 2021-12-14 00:00:00 2021-12-14 00:00:00 Orders Only Doctor Unassigned, Willard [facility] 1..840.114 350.1.13.10 4.2.7.2.686 [id number] [facility] 2021-11-30 12:04:00 2021-11-30 13:48:00 Emergency X MICHAEL JULIEN [facility] ERT [id number] [facility] 2021-11-30 12:04:00 2021-11-30 13:48:00 Emergency X MICHAEL JULIEN [facility] ERT [id number] [facility] 2021-11-30 12:04:00 2021-11-30 13:48:00 Emergency Julien Michael R [facility] 1..840.114 350.1.13.10 [id number] [id number] [facility] 2021-06-20 16:43:00 2021-06-20 19:22:00 Emergency X JONH THOMPSON [facility] ERT [id number] [facility] 2021-06-20 16:43:00 2021-06-20 16:43:00 Emergency X JONH THOMPSON [facility] ERT [id number] [facility] 2021-01-31 16:06:00 2021-02-03 11:56:00 Inpatient X RONAL GIBBS [facility] KRISTA [id number] [facility] 2021-01-31 16:06:00 2021-01-31 16:06:00 Emergency X KIKA CAMPOS [facility] ERT [id number] [facility] 2020-12-23 04:51:00 2020-12-23 06:12:00 Emergency X FORREST MASCORRO [facility] ERT [id number] [facility] 2020-04-08 09:43:35 2020-04-08 10:42:00 Emergency X VELASQUEZ NOLASCO [facility] ERT [id number] [facility] 2020-02-01 09:53:55 2020-02-01 12:32:00 Emergency X Tosin GOODWIN [facility] ERT [id number] [facility]
--- NOTE | 2024-01-11 09:09 | EDPHYS ---
Physician Documentation [facility] Name: Debo Foster Age: 53 yrs Sex: Female : 1970 Arrival Date: 01/11/2024 Time: 08:47 Bed 12 Private MD: ED Physician Russel Jones HPI: 01/11 09:06 This 53 yrs old Female presents to ER via Unassigned with complaints of kb Painful Cough, Headache, Body aches, Chest Pain. 09:06 Pt is a 53 year old female who was diagnosed with covid yesterday. Returns today kb because her symptoms have no improved and she wants something for pain. States the bodyaches have been keeping her up. Historical: - Allergies: 09:07 NKDA; hb - PMHx: 09:07 Anxiety; Hypertensive disorder; hb - Immunization history:: Adult Immunizations up to date. - Social history:: Smoking status: . ROS: 09:04 Abdomen/GI: Negative for abdominal pain, nausea, vomiting, diarrhea, and constipation, kb 09:04 Constitutional: Positive for body aches, chills, fatigue, fever, malaise, 09:04 ENT: Positive for rhinorrhea, sinus congestion, sore throat, 09:04 Respiratory: Positive for cough, 09:04 All other systems are negative, Exam: 09:04 Constitutional: This is a well developed, well nourished patient who is awake, alert, kb and in no acute distress. Head/Face: Normocephalic, atraumatic. ENT: Moist Mucous membranes Cardiovascular: Regular rate Respiratory: Respirations even and unlabored. No increased work of breathing. Talking in full sentences Skin: Warm, dry with normal turgor. Normal color. MS/ Extremity: Pulses equal, no cyanosis. Neurovascular intact. Full, normal range of motion. Neuro: Awake and alert, GCS 15, oriented to person, place, time, and situation. Moves all extremities. Normal gait. Vital Signs: 09:05 BP 136 / 86; Pulse 100; Resp 16; Temp 97.2(TE); Pulse Ox 97% on R/A; Pain 10/10; hb 09:05 Pain Scale: Adult hb MDM: 08:59 Patient medically screened. kb 09:05 Differential Diagnosis: Other covid, flu, uri. Data reviewed: vital signs, nurses kb notes. Test considered but Not performed: X-ray: chest x-ray considered, but resp even and unlabored, oxygen saturation 98% and chest x-ray done yesterday was normal. Counseling: I had a detailed discussion with the patient and/or guardian regarding the historical points, exam findings, and any diagnostic results supporting the discharge/admit diagnosis, the need for outpatient follow up, a family practitioner, to return to the emergency department if symptoms worsen or persist or if there are any questions or concerns that arise at home. Administered Medications: 09:27 Drug: Ketorolac IM 30 mg IM once Route: IM; Site: right ventrogluteal; hb Disposition: 11:38 Co-signature as Attending Physician, Russel Jones MD I reviewed the patient's care rt provided by the Advanced Practice Provider and agree with the diagnosis and treatment plan. Disposition Summary: 01/11/24 09:08 Discharge Ordered Notes: Location: Home kb Condition: Stable kb Diagnosis - SARS-associated coronavirus as the cause of diseases classified elsewhere kb Followup: kb - With: Emergency Department - When: As needed - Reason: Worsening of condition Followup: kb - With: Private Physician - When: 2 - 3 days - Reason: Recheck today's complaints, Continuance of care, Re-evaluation by your physician Discharge Instructions: - Discharge Summary Sheet kb - COVID-19 kb - Viral Illness, Adult kb Forms: - Medication Reconciliation Form kb - Thank You Letter kb - Antibiotic Education kb - Prescription Opioid Use kb - Patient Portal Instructions kb - Leadership Thank You Letter kb Prescriptions: - albuterol sulfate 90 mcg/actuation Inhalation HFA Aerosol Inhaler - inhale 2 puff INHALATION route every 4-6 hours As needed; 1 unit; Refills: 0, kb Product Selection Permitted Signatures: Sherry Haynes FNP-C FNP-Ckb Baxter, Heather, RN RN Russel Jones MD MD rt
--- NOTE | 2024-01-11 09:09 | ER ---
Nurse's Notes [facility] Name: Debo Foster Age: 53 yrs Sex: Female : 1970 Arrival Date: 01/11/2024 Time: 08:47 Bed 12 Private MD: Diagnosis: SARS-associated coronavirus as the cause of diseases classified elsewhere Presentation: 01/11 09:05 Chief complaint: Patient states: "I feel awful< I don't feel any better, I have COVID hb and I am hurting all over and cold.". Coronavirus screen: At this time, the client does not indicate any symptoms associated with coronavirus-19. Ebola Screen: No symptoms or risks identified at this time. Initial Sepsis Screen: Does the patient meet any 2 criteria? No. Patient's initial sepsis screen is negative. Does the patient have a suspected source of infection? No. Patient's initial sepsis screen is negative. Risk Assessment: Do you want to hurt yourself or someone else? Patient reports no desire to harm self or others. Onset of symptoms was January 11, 2024. 09:05 Method Of Arrival: Ambulatory hb 09:05 Acuity: CELIO 3 hb Historical: - Allergies: 09:07 NKDA; hb - PMHx: 09:07 Anxiety; Hypertensive disorder; hb - Immunization history:: Adult Immunizations up to date. - Social history:: Smoking status: . Screenin:07 [facility] ED Fall Risk Assessment (Adult) Score/Fall Risk Level 0 - 2 = Low Risk hb Oriented to surroundings, Maintained a safe environment, Educated pt \\T\\ family on fall prevention, incl call for assistance when getting out of bed. Abuse screen: Denies threats or abuse. Denies injuries from another. Nutritional screening: No deficits noted. Tuberculosis screening: No symptoms or risk factors identified. Assessment: 09:07 General: Appears in no apparent distress. uncomfortable, Behavior is calm, cooperative. hb Pain: Pain currently is 10 out of 10 on a pain scale. Neuro: Level of Consciousness is awake, alert, obeys commands, Oriented to person, place, time, situation. Cardiovascular: Patient's skin is warm and dry. Respiratory: Respiratory effort is even, unlabored, Respiratory pattern is regular, symmetrical. GI: No signs and/or symptoms were reported involving the gastrointestinal system. : No signs and/or symptoms were reported regarding the genitourinary system. EENT: No signs and/or symptoms were reported regarding the EENT system. Derm: Skin is pink, warm \\T\\ dry. Musculoskeletal: Reports body aches. Vital Signs: 09:05 BP 136 / 86; Pulse 100; Resp 16; Temp 97.2(TE); Pulse Ox 97% on R/A; Pain 10/10; hb 09:05 Pain Scale: Adult hb ED Course: 08:49 Patient arrived in ED. ra3 08:59 [facility] kb 08:59 Russel Jones MD is Attending Physician. kb 09:07 Triage completed. hb 09:07 Arm band placed on. hb 09:07 Patient has correct armband on for positive identification. Provided Education on: . hb 09:07 No provider procedures requiring assistance completed. Patient did not have IV access hb during this emergency room visit. 09:27 Gillian Faith, RN is Primary Nurse. hb Administered Medications: :27 Drug: Ketorolac IM 30 mg IM once Route: IM; Site: right ventrogluteal; hb Medication: 09:07 VIS not applicable for this client. hb Outcome: 09:08 Discharge ordered by . kb 09:28 Discharged to home ambulatory, hb 09:28 Condition: stable 09:28 Discharge instructions given to patient, Instructed on discharge instructions, follow up and referral plans. medication usage, Demonstrated understanding of instructions, follow-up care, medications, Prescriptions given X 1, 09:28 Patient left the ED. hb Signatures: Sherry Haynes FNP-C FNP-Gillian Day, RN RN Debo Patrick ra3
[2024-01-11 09:32] VITALS: BP 136/86; TEMP 97.2; O2SAT 97
== END ==
LOC: ER 08:47
DX: U07.1 COVID-19 (principal)

== ENCOUNTER → 2024-02-10 | Emergency (ER) | payer OTHER ==
--- OUTSIDE RECORDS SUMMARY | 2024-02-10 14:23 | XMS REPORT | Continuity of Care Document ---
Author Name Unknown Address [address] [place] [address] [facility] thconnect Address [address] [place] [address] Care Team Providers Care Cardiovascular Operating Room Nurse Name Role Phone PCP, PATIENT DOES NOT HAVE A Primary Care Physic dena Unavailable DERIK MAHER Attending Clinician Unavailab NESSA Wolf Attending Clinician Unavailable Nessa Self MD Attending Clinician [phone] EMILY BEDOLLA Attending Clinician Unavailable ALESHA GAMBLE Attending Clinician Unavailable JUSTINA LOCK Attending Clinician Unavailable Doctor Unassigned, [place] Attending Clinician U pazailLADI Campa Attending Clinician UnavailLadi Hdz MD Attending Clinician [phone] MICHAEL JULIEN Attending Clinician Unavailable Michael Dee Attending Clinician [phone] JONH THOMPSON Attending Clinician Unavailab RONAL Reilly [...] Number Effective Date Expirati on Date Source [employer] [facility] [employer]GAL N[employer]SE [employer]ANT 94 [place] 9 [id number] 2024 00:00:00 [employer] [id number] 2023 00:00:00 Problems Condition Name Condition Details Condition Category Status Onset Date Resolution Date Last Treatment Date Treating Clinician Comments Source Diverticul itis Diverticul itis Disease Active 3 00:00: 00 [facility] Allergies, Adverse Reactions, Alerts Allergy Name Allergy Type Status Severity Reaction(s) Onset Date Inactive Date Treating Clinician Comments Source NO KNOWN ALLERGIE S Drug Class Active [facility] Social History Social Habit Start Date Stop Date Quantity Comments Source History of tobacco use Current smoker [facility] Sexual orientation [facility] Exposure to SARS-CoV-2 (event) Not sure [facility] Gender identity Xenia Cade - External Alcohol Comment 2023-02-17 00:00:00 2023-02-17 00:00:00 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 Funmi Cade - External Alcohol intake 2023-02-17 00:00:00 2023-02-17 00:00:00 Ex-drinker (finding) Funmi Cade - External History of Social function 2021-12-14 00:00:00 2021-12-14 00:00:00 [facility] Tobacco use and exposure 2021-02-01 00:00:00 2021-02-01 00:00:00 Smokeless tobacco non-user [facility] Sex Assigned At 1970 00:00:00 1970 00:00:00 Funmi Cade - External Smoking Status Start Date Stop Date Source Never smoked tobacco Funmi Cade - External Ex-smoker 2021-02-01 00:00:00 2021-02-01 00:00:00 [facility] Medications Ordered Medication Name Filled Medication Name Start Date Stop Date Current Medication? Ordering Clinician Indication Dosage Frequency Signature (SIG) Comments Components Source albuterol (PROVENTIL) 2.5 mg /3 mL (0.083 %) nebulizer solution 5 mg 2022-11 15:30: 00 10-28 14:34 :00 No 5mg 5 mg, Inhalation , ONCE, 1 dose, On Fri10/28/23 at 0930, [facility] albuterol (PROVENTIL) 2.5 mg /3 mL (0.083 %) nebulizer solution 2.5 mg 2022-11 15:00: 00 10-28 14:12 :00 No 2.5mg 2.5 mg, Inhalation , ONCE, 1 dose, On Fri10/28/23 at 0900, [facility] ipratropium (ATROVENT) 0.02 % nebulizer solution 0.5 mg 2022-11 15:00: 00 10-28 14:12 :00 No .5mg 0.5 mg, Inhalation , ONCE, 1 dose, On Fri10/28/23 at 0900, [facility] predniSONE (DELTASONE) tablet 60 mg 2022-11 14:15: 00 10-28 14:10 :00 No 60mg 60 mg, Oral, ONCE, 1 dose, On Fri10/28/23 at 0815, [facility] albuterol 90 mcg/actuati on inhaler 2022-11 00:00: 00 Yes [id number] 2{puff} Inhale 2 Puffs every 4 (four) hours as needed for Wheezing or Shortness of Breath. [facility] methylPREDN ISolone (MEDROL, CHARLI,) 4 mg tablets 2022-11 00:00: 00 Yes [id number] Take by mouth SEE-INSTRU CTIONS. follow package directions [facility] benzonatate 100 mg capsule 2022-11 00:00: 00 Yes [id number] 100mg Take 1 capsule by mouth 3 (three) times daily as needed for Cough. [facility] ALPRAZolam (XANAX) tablet 1 mg 2022-11 16:00: 00 10-23 16:08 :00 No 1mg 1 mg, Oral, ONCE, 1 dose, On Joanna 10/23/23 at 1000, [facility] Lisinopril 10 MG oral Tablet 03-17 12:: 03-17 00:00 :00 No 10mg Take 10 mg by mouth daily Funmi Sekatiaold - Externa l Albuterol HFA 108 (90 Base) MCG/ACT IN AERS 03-17 12:: 03-17 00:00 :00 No 2{puff} Q.25D Inhale 2 puffs into the lungs every 6 hours as needed Funmi Seybold - Externa l Albuterol HFA 108 (90 Base) MCG/ACT IN AERS 03-17 00:00: 00 Yes [id number] 2{puff} Q.25D Inhale 2 puffs into the lungs every 6 hours as needed Funmi Cade - Externa l Lisinopril 10 MG oral Tablet 03-17 00:00: 00 Yes [id number] 10mg Take 1 tablet (10 mg total) by mouth daily Funmi Robbinsold - Externa l hydrOXYzine HCl 25 MG oral Tablet 03-17 00:00: 00 Yes [id number] 25mg [id number] 3D Take 1 tablet (25 mg total) by mouth every 8 hours as needed for itching or anxiety Funmi Cade - Externa l Albuterol HFA 108 (90 Base) MCG/ACT IN AERS 03-17 00:00: 00 Yes [id number] 2{puff} Q.25D Inhale 2 puffs into the lungs every 6 hours as needed Funmi Vencesybold - Externa l Lisinopril 10 MG oral Tablet 03-17 00:00: 00 Yes [id number] 10mg Take 1 tablet (10 mg total) by mouth daily Funmi Seybold - Externa l hydrOXYzine HCl 25 MG oral Tablet 03-17 00:00: 00 Yes [id number] 25mg Q.[id number] 3D Take 1 tablet (25 mg total) [...] tablet by mouth daily Funmi Rayo hernandez CHLORPHENIR AMINE MALEATE ORAL 02-03 12:08: 49 Yes 4mg Take 4 mg by mouth 2 (two) times daily. [facility] CHLORPHENIR AMINE MALEATE ORAL 02-03 12:08: 49 Yes 4mg Take 4 mg by mouth 2 (two) times daily. [facility] CHLORPHENIR AMINE MALEATE ORAL 02-03 12:08: 50 Yes 4mg Take 4 mg by mouth 2 (two) times daily. [facility] CHLORPHENIR AMINE MALEATE ORAL 02-03 12:08: 50 Yes 4mg Take 4 mg by mouth 2 (two) times daily. [facility] CHLORPHENIR AMINE MALEATE ORAL 02-03 12:08: 50 Yes 4mg Take 4 mg by mouth 2 (two) times daily. [facility] CHLORPHENIR AMINE MALEATE ORAL 0 02-03 12:08: 50 Yes 4mg Take 4 mg by mouth 2 (two) times daily. [facility] lisinopriL 10 mg tablet 02-03 00:00: 00 Yes [id number] 10mg Take 1 tablet by mouth at bedtime. [facility] lisinopriL 10 mg tablet 02-03 00:00: 00 Yes [id number] 10mg Take 1 tablet by mouth at bedtime. [facility] lisinopriL 10 mg tablet 02-03 00:00: 00 Yes [id number] 10mg Take 1 tablet by mouth at bedtime. [facility] lisinopriL 10 mg tablet 02-03 00:00: 00 Yes [id number] 10mg Take 1 tablet by mouth at bedtime. [facility] lisinopriL 10 mg tablet 02-03 00:00: 00 Yes [id number] 10mg Take 1 tablet by mouth at bedtime. [facility] lisinopriL 10 mg tablet 02-03 00:00: 00 Yes [id number] 10mg Take 1 tablet by mouth at bedtime. [facility] Vital Signs Vital Name Observation Time Observation Value Comments S ource Heart rate 2023-10-28 15:25:00 107 /min [facility] Body temperature 2023-10-28 15:25:00 36.89 Kell [facility] Respiratory rate 2023-10-28 15:25:00 18 /min [facility] Oxygen saturation in Arterial blood by Pulse oximetry 2023-10-28 15:25:00 93 /min [facility] Systolic blood pressure 2023-10-28 15:00:00 107 mm[Hg] [facility] Diastolic blood pressure 2023-10-28 15:00:00 83 mm[Hg] [facility] Body height 2023-10-28 13:58:00 160 cm [facility] Body weight 2023-10-28 13:58:00 63.504 kg [facility] BMI 2023-10-28 13:58:00 24.80 kg/m2 [facility] Systolic blood pressure 2023-10-23 15:28:00 138 mm[Hg] [facility] Diastolic blood pressure 2023-10-23 15:28:00 96 mm[Hg] [facility] Heart rate 2023-10-23 15:28:00 102 /min [facility] Body temperature 2023-10-23 15:28:00 37 Kell [facility] Respiratory rate 2023-10-23 15:28:00 18 /min [facility] Body height 2023-10-23 15:28:00 152.4 cm [facility] Body weight 2023-10-23 15:28:00 63.504 kg [facility] BMI 2023-10-23 15:28:00 27.34 kg/m2 [facility] Oxygen saturation in Arterial blood by Pulse oximetry 2023-10-23 15:28:00 96 /min [facility] Systolic blood pressure 2021-12-14 15:27:00 124 mm[Hg] [facility] Diastolic blood pressure 2021-12-14 15:27:00 88 mm[Hg] [facility] Heart rate 2021-12-14 15:27:00 100 /min [facility] Respiratory rate 2021-12-14 15:27:00 18 /min [facility] Body weight 2021-12-14 15:27:00 56.7 kg [facility] BMI 2021-12-14 15:27:00 24.41 kg/m2 [facility] Oxygen saturation in Arterial blood by Pulse oximetry 2021-12-14 15:27:00 99 /min [facility] Procedures Procedure Date / Time Performed Performing Clinician Source XR CHEST 1 VW 2023-10-28 15:17:50 Nessa Self [facility] RAPID INFLUENZA A/B 2023-10-28 14:13:00 [facility]APID [facility] 2023-10-28 14:13:00 Nessa Self [facility] CONSENT/REFUSAL FOR DIAGNOSIS AND TREATMENT 2023-10-28 13:54:52 Doctor Unassigned, [place] [facility] ASSIGNMENT OF BENEFITS 2023-10-23 16:33:05 Docto r Unassigned, [place] [facility] RAPID STREP SCREEN FOR GROUP A 2023-10-23 16:09:00 Alesha Gamble [facility] RAPID INFLUENZA A/B 2023-10-23 16:09:00 Keara Gamble [facility] COVID-19 (ID NOW RAPID TESTING) 2023-10-23 16:09:00 Alesha Gamble [facility] CONSENT/REFUSAL FOR DIAGNOSIS AND TREATMENT 2023-10-23 15:22:28 Doctor Unassigned, [place] [facility] AUTHORIZATION FOR RELEASE OF PHI 2022-01-23 06:01:00 Doctor Unassigned, [place] [facility] OP CLINIC NOTES/CONSULTS 2021-12-14 06:01:00 Doc tor Unassigned, [place] [facility] Encounters Start Date/Time End Date/Time Encounter Type Admission Type Attending [facility] Care Department Encounter ID Source 2024-02-05 13:30:00 2024-02-05 13:30:00 Outpatient DERIK MAHER [id number] Funmi Cade 2023-10-28 08:00:00 2023-10-28 09:49:00 Emergency X NESSA SELF [facility] ERT [id number] [facility] 2023-10-28 08:00:00 2023-10-28 09:49:00 Emergency Nessa Self [facility] [id number] [id number] [facility] 2023-10-28 00:00:00 2023-10-28 00:00:00 Outpatient EMILY BEDOLLA [id number] [facility] 2023-10-23 09:29:00 2023-10-23 11:58:00 Emergency X LAESHA GAMBLE [facility] ERT [id number] [facility] 2023-10-23 09:29:00 2023-10-23 11:58:00 Emergency Alesha Gamble [facility] [id number] [id number] [id number] [facility] 2023-10-08 00:00:00 2023-10-08 00:00:00 Outpatient JUSTINA LOCK FUNMI [id number] [facility] 2023-06-05 10:34:04 2023-06-05 10:34:04 Outpatient [facility] [id number] [place] [place] 2023-04-07 00:00:00 2023-04-07 00:00:00 Outpatient EMILY BEDOLLA FUNMI [id number] Funmi Vencesny 2023-03-17 12:00:00 2023-03-17 12:00:00 Outpatient EMILY BEDOLLA FUNMI [id number] [facility] 2023-03-17 11:45:00 2023-03-17 11:45:00 Outpatient EMILY BEDOLLA FUNMI [id number] Funmi [facility] 2023-02-18 14:15:00 2023-02-18 14:15:00 Outpatient JUSTINA LOCK FUNMI [id number] Funmi [facility] 2023-01-01 15:30:00 2023-01-01 15:30:00 Outpatient JUSTINA LOCK FUNMI [id number] Funmi [facility] 2022-12-25 13:45:00 2022-12-25 13:45:00 Outpatient JUSTINA LOCK FUNMI [id number] [facility] 2022-12-06 16:38:33 2022-12-06 16:38:33 Outpatient [facility] [id number] Tee [place] 2022-10-31 11:39:23 2022-10-31 11:39:23 Outpatient [facility] [id number] Tee [place] 2022-01-23 00:00:00 2022-01-23 00:00:00 Orders Only Doctor Unassigned, [place] [facility] [id number] [id number] [id number] [id number] [facility] 2021-12-14 09:15:00 2021-12-14 09:30:56 Outpatient LADI DELGADO [facility] [id number] [facility] 2021-12-14 09:15:00 2021-12-14 09:30:56 Office Visit Ladi Gonzales [facility] [id number] [id number] [id number] [id number] [facility] 2021-12-14 00:00:00 2021-12-14 00:00:00 Orders Only Doctor Unassigned, [place] [facility] 1..840.114 350.1.13.10 4.2.7.2.686 [id number] [facility] 2021-11-30 12:04:00 2021-11-30 13:48:00 Emergency X MICHAEL JULIEN [facility] ERT [id number] [facility] 2021-11-30 12:04:00 2021-11-30 13:48:00 Emergency X MICHAEL JULIEN [facility] ERT [id number] [facility] 2021-11-30 12:04:00 2021-11-30 13:48:00 Emergency Michael Julien [facility] 1..840.114 350.1.13.10 [id number] [id number] [facility] 2021-06-20 16:43:00 2021-06-20 19:22:00 Emergency X JONH THOMPSON [facility] ERT [id number] [facility] 2021-06-20 16:43:00 2021-06-20 16:43:00 Emergency X JONH THOMPSON [facility] ERT [id number] [facility] 2021-01-31 16:06:00 2021-02-03 11:56:00 Inpatient X RONAL GIBBS [facility] KRISTA [id number] [facility] 2021-01-31 16:06:00 2021-01-31 16:06:00 Emergency X KIKA CAMPOS [facility] ERT [id number] [facility] 2020-12-23 04:51:00 2020-12-23 06:12:00 Emergency X FORREST MASCORRO [facility] ERT [id number] [facility] 2020-04-08 09:43:35 2020-04-08 10:42:00 Emergency X VELASQUEZ NOLASCO [facility] ERT [id number] [facility] 2020-02-01 09:53:55 2020-02-01 12:32:00 Emergency X Tsoin GOODWIN [facility] ERT [id number] [facility]
--- NOTE | 2024-02-10 15:56 | EDPHYS ---
Physician Documentation [facility] Name: Debo Foster Age: 53 yrs Sex: Female : 1970 Arrival Date: 02/10/2024 Time: 14:19 Bed IW3 Private MD: ED Physician Steven Miller HPI: 02/09 14:49 This 53 yrs old Female presents to ER via Ambulatory with complaints of Flu kb Symptoms. 14:49 Patient is a 53-year-old female who presents for headache, body aches, fever, cough, kb congestion, sore throat that started 2 to 3 days ago. States she had COVID 2 weeks ago and symptoms had resolved. Denies nausea, vomiting, diarrhea.. Historical: - Allergies: 14:48 NKDA; ap3 - PMHx: 14:48 Anxiety; Hypertensive disorder; ap3 - Immunization history:: Client reports receiving the 2nd dose of the Covid vaccine. - Social history:: Smoking status: Patient denies any tobacco usage or history of. ROS: 14:49 Constitutional: As per HPI kb Exam: 14:49 Constitutional: This is a well developed, well nourished patient who is awake, alert, kb and in no acute distress. Head/Face: Normocephalic, atraumatic. ENT: Moist Mucous membranes Cardiovascular: Regular rate Respiratory: Respirations even and unlabored. No increased work of breathing. Talking in full sentences Skin: Warm, dry with normal turgor. Normal color. MS/ Extremity: Pulses equal, no cyanosis. Neurovascular intact. Full, normal range of motion. Neuro: Awake and alert, GCS 15, oriented to person, place, time, and situation. Moves all extremities. Normal gait. Vital Signs: 14:47 BP 133 / 97; Pulse 99; Resp 17; Pulse Ox 99% on R/A; Weight 65.77 kg; Height 5 ft. 0 ap3 in. ; Pain 8/10; 14:49 Temp 98.8; ap3 14:47 Body Mass Index 28.32 (65.77 kg, 152.4 cm) ap3 14:47 Pain Scale: Adult ap3 MDM: 14:32 Patient medically screened. kb 14:50 Differential Diagnosis: Bronchitis Influenza Upper Respiratory Infection Other COVID, kb strep. Data reviewed: vital signs, nurses notes. 15:39 ED course: Pt elected to leave prior to diagnostic testing from the lobby. kb Administered Medications: No medications were administered Disposition Summary: 02/10/24 15:40 Discharge Ordered Notes: Location: Home kb Condition: Stable kb Diagnosis - Acute upper respiratory infection, unspecified kb Followup: kb - With: Emergency Department - When: As needed - Reason: Worsening of condition Followup: kb - With: Private Physician - When: 2 - 3 days - Reason: Recheck today's complaints, Continuance of care, Re-evaluation by your physician Discharge Instructions: - Discharge Summary Sheet kb - Upper Respiratory Infection, Adult, Onsg-kc-Oxen kb - Viral Respiratory Infection, Knfl-Mz-Aebg kb Forms: - Medication Reconciliation Form kb - Thank You Letter kb - Antibiotic Education kb - Prescription Opioid Use kb - Patient Portal Instructions kb - Leadership Thank You Letter kb Signatures: Sherry Haynes FNP-C DONNIE-Winsome Bacon, RN RN ap3
--- NOTE | 2024-02-10 15:56 | ER ---
Nurse's Notes [facility] Name: Debo Foster Age: 53 yrs Sex: Female : 1970 Arrival Date: 02/10/2024 Time: 14:19 Bed IW3 Private MD: Diagnosis: Acute upper respiratory infection, unspecified Presentation: 02/09 14:47 Chief complaint: Patient states: she has been having cough, congestion and body aches ap3 for approx two days. Coronavirus screen: Client presents with at least one sign or symptom that may indicate coronavirus-19. Ebola Screen: No symptoms or risks identified at this time. Initial Sepsis Screen: Does the patient have a suspected source of infection? No. Patient's initial sepsis screen is negative. Initial Sepsis Screen: Does the patient meet any 2 criteria? HR > 90 bpm. Risk Assessment: Do you want to hurt yourself or someone else? Patient reports no desire to harm self or others. Onset of symptoms was February 08, 2024. 14:47 Method Of Arrival: Ambulatory ap3 14:47 Acuity: CELIO 3 ap3 Triage Assessment: 14:48 General: Appears in no apparent distress. Behavior is calm, cooperative, appropriate ap3 for age. Pain: Complains of pain in generalized body aches. Neuro: Level of Consciousness is awake, alert, obeys commands, Oriented to person, place, time, situation, Appropriate for age. Cardiovascular: Patient's skin is warm and dry. Respiratory: Reports cough that is Airway is patent Respiratory effort is even, unlabored, Respiratory pattern is regular, symmetrical. Historical: - Allergies: 14:48 NKDA; ap3 - PMHx: 14:48 Anxiety; Hypertensive disorder; ap3 - Immunization history:: Client reports receiving the 2nd dose of the Covid vaccine. - Social history:: Smoking status: Patient denies any tobacco usage or history of. Screenin:14 [facility] ED Fall Risk Assessment (Adult) History of falling in the last 3 months, ll1 including since admission No falls in past 3 months (0 pts) Confusion or Disorientation No (0 pts) Intoxicated or Sedated No (0 pts) Impaired Gait No (0 pts) Mobility Assist Device Used No (0 pt) Altered Elimination No (0 pt) Score/Fall Risk Level 0 - 2 = Low Risk Maintained a safe environment. Abuse screen: Denies threats or abuse. Nutritional screening: No deficits noted. Tuberculosis screening: No symptoms or risk factors identified. Assessment: 15:45 Reassessment: No changes from previously documented assessment. Told provider she ll1 needed to leave, discharged but did not wait for written instructions. Vital Signs: 14:47 BP 133 / 97; Pulse 99; Resp 17; Pulse Ox 99% on R/A; Weight 65.77 kg; Height 5 ft. 0 ap3 in. ; Pain 8/10; 14:49 Temp 98.8; ap3 14:47 Body Mass Index 28.32 (65.77 kg, 152.4 cm) ap3 14:47 Pain Scale: Adult ap3 ED Course: 14:23 Patient arrived in ED. mr 14:24 Jarad Dunbar MD is Attending Physician. rn 14:24 Sherry Haynes FNP-C is [facility]. kb 14:24 Attending Physician role handed off by Jarad Dunbar MD kb 14:24 Steven Miller MD is Attending Physician. kb 14:48 Triage completed. ap3 14:49 Arm band placed on right wrist. ap3 16:14 Patient has correct armband on for positive identification. Provided Education on: n/a. ll1 16:14 No provider procedures requiring assistance completed. Patient did not have IV access ll1 during this emergency room visit. Administered Medications: No medications were administered Medication: 16:14 VIS not applicable for this client. ll1 Outcome: 15:40 Discharge ordered by . kb 15:49 Patient left the ED. ll1 15:49 Discharged to home ambulatory, ll1 15:49 Condition: stable 15:49 Discharge instructions given to patient, Instructed on discharge instructions, follow up and referral plans. Demonstrated understanding of instructions, follow-up care, left with verbal discharge instructions only. Did not wait for printed discharge instructions. Signatures: Sherry Haynes FNP-C MEMBERSHIP SALES ADVISOR-Julia Stewart, Meet Dsouza mr Jarad Dunbar MD MD rn Prokisch, Amanda, RN RN ap3 Katty Leiva RN RN ll1
[2024-02-10 17:19] VITALS: BP 133/97; TEMP 98.8; O2SAT 99
== END ==
LOC: ER 14:19
DX: J06.9 Acute upper respiratory infection, unspecified (principal)

== ENCOUNTER 2024-08-09 15:28 | Emergency (ER) | payer OTHER ==
--- OUTSIDE RECORDS SUMMARY | 2024-08-09 15:32 | XMS REPORT | Continuity of Care Document ---
Author Name Unknown Address [address] [facility] [address] [place] [address] [facility] thconnect Address [address] [facility] [address] [place] [address] Care Team Providers Care Senior Account Manager Name Role Phone PCP, PATIENT DOES NOT HAVE A Primary Care Physic dena Unavailable PATRICA LIMA Attending Clinician UnaRUSSEL Gallardo Attending Clinician Unavailable JUSTINA LOCK Attending Clinician Unavailable MADAN LIM Attending Clinician Unavail able TYLOR ZHANG Attending Clinician UnavailSMILEY Beltrán Attending Clinician Unavailable DERIK MAHER Attending Clinician Unavailab NESSA Wolf Attending Clinician Unavailable Nessa Self MD Attending Clinician [phone] EMILY BEDOLLA Attending Clinician Unavailable ALESHA GAMBLE Attending Clinician Unavailable Doctor Unassigned, [place] Attending Clinician U LADI Bowens Attending Clinician UnavailLadi Hdz MD Attending Clinician [phone] MICHAEL JULIEN Attending Clinician Unavailable Michael Dee Attending Clinician [phone] JONH THOMPSON Attending Clinician Unavailab RONAL Reilly Attending Clinician Unavailable KIKA CAMPOS Attending Clinician Unavailable FORREST MASCORRO Attending Clinician Unavailable VELASQUEZ NOLASCO Attending Clinician Unavailable Tosin GOODWIN Attending Clinician Unavailable NESSA SELF Admitting Clinician Unavailable MICHAEL JULIEN Admitting Clinician Unavailable JONH THOMPSON Admitting Clinician UnavailRONAL Guerra Admitting Clinician Unavailable FORREST MSACORRO Admitting Clinician Unavailable VELASQUEZ NOLASCO Admitting Clinician Unavailable Tosin GOODWIN Admitting Clinician Unavailable Payers Payer Name Policy Type Policy Number Effective Date Expirati on Date Source [employer] MP [employer] 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 [place] 9 [id number] 2024 00:00:00 [employer] COMM[employer] OF NETWORK [id number] 2023 00:00:00 Problems Condition Name Condition Details Condition Category Status Onset Date Resolution Date Last Treatment Date Treating Clinician Comments Source Diverticul itis Diverticul itis Disease Active 01-31 00:00: 00 [facility] Anxiety Anxiety Disease Active Funmi Seybold - Externa l Asthma (HHS-HCC) Asthma (HHS-HCC) Disease Active Funmi Seybold - Externa l Bipolar 1 disorder (multi HCC) Bipolar 1 disorder (multi HCC) Disease Active Funmi Seybold - Externa l Hypertensi on Hypertensi on Disease Active Funmi Seybold - Externa l Rheumatoid arthritis (multi HCC) Rheumatoid arthritis (multi HCC) Disease Active Funmi Seybold - Externa l Schizoaffe ctive disorder (multi HCC) Schizoaffe ctive disorder (multi HCC) Disease Active Funmi Seybold - Externa l Allergies, Adverse Reactions, Alerts Allergy Name Allergy Type Status Severity Reaction(s) Onset Date Inactive Date Treating Clinician Comments Source NO KNOWN ALLERGIE S Drug Class Active [facility] Social History Social Habit Start Date Stop Date Quantity Comments Source Gender identity Xenia Cade - External History of tobacco use Passive smoker Funmi smith - External Sexual orientation U 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 Medications Ordered Medication Name Filled Medication Name Start Date Stop Date Current Medication? Ordering Clinician Indication Dosage Frequency Signature (SIG) Comments Components Source Aripiprazol e 15 MG oral Tablet 03-24 12:58: 31 Yes 15mg Take 1 tablet (15 mg total) by mouth daily. Funmi hernandez hydrOXYzine HCl 50 MG oral Tablet 03-24 00:00: 00 Yes [id number] 50mg [id number] 3D Take 1 tablet (50 mg total) by mouth 3 times daily as needed for itching. Funmi hernandez Fluticasone Furoate 100 MCG/ACT inhalation AEROSOL POWDER, BREATH ACTIVATED 03-24 00:00: 00 Yes [id number] 1{puff} Inhale 1 puff into the lungs daily. Funmi hernandez Lisinopril 10 MG oral Tablet 03-24 00:00: 00 Yes [id number] 10mg Take 1 tablet (10 mg total) by mouth daily. Funmi hernandez Amoxicillin -Pot Clavulanate 875-125 MG oral Tablet 03-24 00:00: 00 Yes [id number] 1{tbl} Take 1 tablet by mouth 2 times daily. Funmi hernandez methylPREDN ISolone 4 MG oral Tablet Therapy Pack 03-24 00:00: 00 Yes [id number] 1{charli} Take 1 charli by mouth See Admin Instructio ns Use as directed. Funmi hernandez albuterol (PROVENTIL) 2.5 mg /3 mL (0.083 %) nebulizer solution 5 mg 2022-11 15:30: 00 10-28 14:34 :00 No 5mg 5 mg, Inhalation , ONCE, 1 dose, On Fri10/28/23 at 0930, [facility] albuterol (PROVENTIL) 2.5 mg /3 mL (0.083 %) nebulizer solution 2.5 mg 2022-11 15:00: 00 10-28 14:12 :00 No 2.5mg 2.5 mg, Inhalation , ONCE, 1 dose, On Fri10/28/23 at 0900, [facility] ipratropium (ATROVENT) 0.02 % nebulizer solution 0.5 mg 2022-11 15:00: 00 10-28 14:12 :00 No .5mg 0.5 mg, Inhalation , ONCE, 1 dose, On Fri10/28/23 at 0900, [facility] predniSONE (DELTASONE) tablet 60 mg 2022-11 14:15: 00 10-28 14:10 :00 No 60mg 60 mg, Oral, ONCE, 1 dose, On Fri10/28/23 at 0815, [facility] albuterol 90 mcg/actuati on inhaler 2022-11 00:00: 00 Yes [id number] 2{puff} Inhale 2 Puffs every 4 (four) hours as needed for Wheezing or Shortness of Breath. [facility] methylPREDN ISolone (MEDROL, CHARLI,) 4 mg tablets 2022-11 00:00: 00 Yes [id number] Take by mouth SEE-INSTRU CTIONS. follow package directions [facility] benzonatate 100 mg capsule 2022-11 00:00: 00 Yes [id number] 100mg Take 1 capsule by mouth 3 (three) times daily as needed for Cough. [facility] ALPRAZolam (XANAX) tablet 1 mg 2022-11 16:00: 00 10-23 16:08 :00 No 1mg 1 mg, Oral, ONCE, 1 dose, On Joanna 10/23/23 at 1000, PRANEETH [facility] hydrOXYzine HCl 25 MG oral Tablet 04-07 00:00: 00 03-24 00:00 :00 No [id number] TAKE 1 TABLET BY MOUTH EVERY 8 HOURS NEEDED FOR ITCHING OR ANXIETY Funmi hernandez Lisinopril 10 MG oral Tablet 03-17 12:25: 20 03-17 00:00 :00 No 10mg Take 10 mg by mouth daily Funmi hernandez Albuterol HFA 108 (90 Base) MCG/ACT IN AERS 03-17 12:25: 20 03-17 00:00 :00 No 2{puff} Q.25D Inhale 2 puffs into the lungs every 6 hours as needed Funmi Brownleea mary Albuterol HFA 108 (90 Base) MCG/ACT IN AERS 03-17 00:00: 00 Yes [id number] 2{puff} Q.25D Inhale 2 puffs into the lungs every 6 hours as needed Funmi hernandez hydrOXYzine HCl 25 MG oral Tablet 03-17 00:00: 00 Yes [id number] 25mg Q.[id number] 3D Take 1 tablet (25 mg total) by mouth every 8 hours as needed for itching or anxiety Funmi hernandez Lisinopril 10 MG oral Tablet 03-17 00:00: 00 03-24 00:00 :00 No [id number] 10mg Take 1 tablet (10 mg total) by mouth daily Funmi hernandez QUEtiapine Fumarate (SEROQUEL OR) 3-27 16:49: 58 Yes 75mg Take 75 mg by mouth every night at bedtime Funmi hernandez Aripiprazol e 15 MG oral Tablet 02-17 16:48: 57 Yes 1{tbl} Take 1 tablet by mouth daily Funmi hernandez CHLORPHENIR AMINE MALEATE ORAL 02-03 12:08: 49 Yes 4mg Take 4 mg by mouth 2 (two) times daily. [facility] lisinopriL 10 mg tablet 02-03 00:00: 00 Yes [id number] 10mg Take 1 tablet by mouth at bedtime. [facility] Vital Signs Vital Name Observation Time Observation Value Comments S ource Oxygen saturation in Arterial blood by Pulse oximetry 2024-03-24 17:54:00 100 /min Funmi rodriguez - External Systolic blood pressure 2024-03-24 17:54:00 116 mm[Hg] Funmi rodriguez - External Diastolic blood pressure 2024-03-24 17:54:00 75 mm[Hg] Funmi rodriguez - External Heart rate 2024-03-24 17:54:00 85 /min Eric Cade - External Body temperature 2024-03-24 17:54:00 36.61 Kell Funmi Cade - External Respiratory rate 2024-03-24 17:54:00 15 /min Funmi Cade - External Body height 2024-03-24 17:54:00 152.4 cm Xenia Cade - External Body weight 2024-03-24 17:54:00 61.689 kg Xenia Cade - External BMI 2024-03-24 17:54:00 26.56 kg/m2 Xenia Cade - External Heart rate 2023-10-28 15:25:00 107 /min [facility] Body temperature 2023-10-28 15:25:00 36.89 Kell [facility] Respiratory rate 2023-10-28 15:25:00 18 /min [facility] Oxygen saturation in Arterial blood by Pulse oximetry 2023-10-28 15:25:00 93 /min [facility] Systolic blood pressure 2023-10-28 15:00:00 107 mm[Hg] [facility] Diastolic blood pressure 2023-10-28 15:00:00 83 mm[Hg] [facility] Body height 2023-10-28 13:58:00 160 cm [facility] Body weight 2023-10-28 13:58:00 63.504 kg [facility] BMI 2023-10-28 13:58:00 24.80 kg/m2 [facility] Systolic blood pressure 2023-10-23 15:28:00 138 mm[Hg] [facility] Diastolic blood pressure 2023-10-23 15:28:00 96 mm[Hg] [facility] Heart rate 2023-10-23 15:28:00 102 /min [facility] Body temperature 2023-10-23 15:28:00 37 Kell [facility] Respiratory rate 2023-10-23 15:28:00 18 /min [facility] Body height 2023-10-23 15:28:00 152.4 cm [facility] Body weight 2023-10-23 15:28:00 63.504 kg [facility] BMI 2023-10-23 15:28:00 27.34 kg/m2 [facility] Oxygen saturation in Arterial blood by Pulse oximetry 2023-10-23 15:28:00 96 /min [facility] Systolic blood pressure 2021-12-14 15:27:00 124 mm[Hg] [facility] Diastolic blood pressure 2021-12-14 15:27:00 88 mm[Hg] [facility] Heart rate 2021-12-14 15:27:00 100 /min [facility] Respiratory rate 2021-12-14 15:27:00 18 /min [facility] Body weight 2021-12-14 15:27:00 56.7 kg [facility] BMI 2021-12-14 15:27:00 24.41 kg/m2 [facility] Oxygen saturation in Arterial blood by Pulse oximetry 2021-12-14 15:27:00 99 /min [facility] Procedures Procedure Date / Time Performed Performing Clinician Source ECG- ADULT 2024-03-24 18:49:38 Russel Tripathi S eybold - External XR CHEST 1 VW 2023-10-28 [facility] 2023-10-28 14:13:[address] [facility] COVID-19 (ID NOW RAPID TESTING) 2023-10-28 14:13:00 Nessa Self [facility] CONSENT/REFUSAL FOR DIAGNOSIS AND TREATMENT 2023-10-28 13:54:52 Doctor Unassigned, [place] [facility] ASSIGNMENT OF BENEFITS 2023-10-23 16:33:05 Docjad hunter Unassigned, [place] [facility] RAPID STREP SCREEN FOR GROUP A 2023-10-23 16:09:00 Alesha Gamble [facility] RAPID INFLUENZA A/B 2023-10-23 16:09:00 Keara Gamble [facility] COVID-19 (ID NOW RAPID TESTING) 2023-10-23 16:09:00 Alesha Gamble [facility] CONSENT/REFUSAL FOR DIAGNOSIS AND TREATMENT 2023-10-23 15:22:28 Doctor Unassigned, [place] [facility] AUTHORIZATION FOR RELEASE OF PHI 2022-01-23 06:01:00 Doctor Unassigned, [place] [facility] OP CLINIC NOTES/CONSULTS 2021-12-14 06:01:00 Doc tor Unassigned, [place] [facility] Encounters Start Date/Time End Date/Time Encounter Type Admission Type Attending [facility] Care Facility Care Department Encounter ID Source 2024-09-06 08:40:00 2024-09-06 08:40:00 Outpatient PATRICA LIMA [id number] [facility] 2024-07-01 00:00:00 2024-07-01 00:00:00 Outpatient RUSSEL TRIPATHI [id number] [facility] 2024-07-01 00:00:00 2024-07-01 00:00:00 [id number] [facility]24-[facility]-03 00:00:00 2024-06-03 00:00:00 Outpatient HUNDL, RUSSEL FUNMI MESSINA [id number] [facility] 2024-06-01 00:00:00 2024-06-01 00:00:00 Outpatient HUNDL, RUSSEL MESSINA [facility] [id number] [facility] 2024-05-02 00:00:00 2024-05-02 00:00:00 Outpatient HUNDL, RUSSEL FUNMI MESSINA [id number] [facility] 2024-05-01 00:00:00 2024-05-01 00:00:00 Outpatient HUNDL, RUSSEL FUNMI MESSINA [id number] [facility] 2024-04-28 13:00:00 2024-04-28 13:00:00 Outpatient HUNDL, RUSSEL FUNMI MESSINA [id number] [facility] 2024-04-16 00:00:00 2024-04-16 00:00:00 Outpatient HUNDL, RUSSEL [facility] [id number] [facility] 2024-04-15 08:30:00 2024-04-15 08:30:00 Outpatient RAPHAEL, MADAN FUNMI MESSINA [id number] [facility] 2024-04-02 12:30:00 2024-04-02 12:30:00 Outpatient VICENTE TYLOR [facility] [id number] [facility] 2024-04-02 09:45:00 2024-04-02 09:45:00 Outpatient SMILEY MORGAN [id number] [facility] 2024-03-29 08:15:00 2024-03-29 08:15:00 Outpatient [facility]MI[facility] MORGAN [id number] [facility] 2024-03-24 13:00:00 2024-03-24 13:00:00 Outpatient HUNDL, RUSSEL MESSINA [id number] [facility] 2024-02-05 13:30:00 2024-02-05 13:30:00 Outpatient DERIK MAHER [id number] [facility] 2023-10-28 08:00:00 2023-10-28 09:49:00 Emergency X NESSA SELF [facility] ERT [id number] [facility] 2023-10-28 08:00:00 2023-10-28 09:49:00 Emergency Nessa Self [facility] [id number] [id number] [facility] 2023-10-28 00:00:00 2023-10-28 00:00:00 Outpatient EMILY BEDOLLA [id number] [facility] 2023-10-23 09:29:00 2023-10-23 11:58:00 Emergency X ALESHA GAMBLE [facility] ERT [id number] [facility] 2023-10-23 09:29:00 2023-10-23 11:58:00 Emergency Alesha Gamble [facility] [id number] [id number] [id number] [facility] 2023-10-08 00:00:00 2023-10-08 00:00:00 Outpatient JUSTINA LOCK [id number] [facility] 2023-06-05 10:34:04 2023-06-05 10:34:04 Outpatient [facility] [id number] Tee [place] 2023-04-07 00:00:00 2023-04-07 00:00:00 Outpatient EMILY BEDOLLA [id number] Funmi Cade 2023-03-17 12:00:00 2023-03-17 12:00:00 Outpatient EMILY BEDOLLA [id number] Funmi Cade 2023-03-17 11:45:00 2023-03-17 11:45:00 Outpatient EMILY BEDOLLA [id number] [facility] Cade 2023-02-18 14:15:00 2023-02-18 14:15:00 Outpatient JUSTINA LOCK [id number] [facility]ade 2023-01-01 15:30:00 2023-01-01 15:30:00 Outpatient JUSTINA LOCK [id number] [facility] 2022-12-25 13:45:00 2022-12-25 13:45:00 Outpatient JUSTINA LOCK [id number] [facility] 2022-12-06 16:38:33 2022-12-06 16:38:33 Outpatient [facility] [id number] Tee [place] 2022-10-31 11:39:23 2022-10-31 11:39:23 Outpatient [facility] [id number] Tee [place] 2022-01-23 00:00:00 2022-01-23 00:00:00 Orders Only Doctor Unassigned, [place] [facility] 1..840.114 350.1.13.10 [id number] [id number] [facility] 2021-12-14 09:15:00 2021-12-14 09:30:56 Outpatient R LADI SALINAS [facility] [id number] [facility] 2021-12-14 09:15:00 2021-12-14 09:30:56 Office Visit Ladi Salinas [facility] 1..840.114 350.1.13.10 [id number] [id number] [facility] 2021-12-14 00:00:00 2021-12-14 00:00:00 Orders Only Doctor Unassigned, [place] [facility] 1..840.114 350.1.13.10 4.2.7.2.686 [id number] [facility] 2021-11-30 12:04:00 2021-11-30 13:48:00 Emergency X MICHAEL JULIEN [facility] ERT [id number] [facility] 2021-11-30 12:04:00 2021-11-30 13:48:00 Emergency X MICHAEL JULIEN [facility] ERT [id number] [facility] 2021-11-30 12:04:00 2021-11-30 13:48:00 Emergency Michael Julien [facility] [id number] 350.1.13.10 [id number] [id number] [facility] 2021-06-20 16:43:00 2021-06-20 19:22:00 Emergency X DONNA JONH [facility] ERT [id number] [facility] 2021-06-20 16:43:00 2021-06-20 16:43:00 Emergency X STACY THOMPSONRA [facility] ERT [id number] [facility] 2021-01-31 16:06:00 2021-02-03 11:56:00 Inpatient X BELINDA GIBBSOLENA [facility] KRISTA [id number] [facility] 2021-01-31 16:06:00 2021-01-31 16:06:00 Emergency X KIKA CAMPOS [facility] ERT [id number] [facility] 2020-12-23 04:51:00 2020-12-23 06:12:00 Emergency X JEWEL MASCORROJESENIA [facility] ERT [id number] [facility] 2020-04-08 09:43:35 2020-04-08 10:42:00 Emergency X GAURAV VELASQUEZ [facility] ERT [id number] [facility] 2020-02-01 09:53:55 2020-02-01 12:32:00 Emergency X Tosin GOODWIN [facility] ERT [id number] [facility] Results Test Description Test Time Test Comments Results Result Co mments Source Funmi Cade - External Notes Date/Time Note Provider Source 2024-03-26 11:01:59 The patient has been notified and verbalized understanding. All questions answered to patients satisfaction. Pt stated she has made a Cardiology appointment. [facility] 2024-03-26 08:15:05 EKG grossly normal. Pt to FU with cardiology. No appointment scheduled as of yet [facility]
[2024-08-09] MEDS ORDERED: KETOROLAC 30 MG/ML INJ ONE (16:48)
[2024-08-09] MEDS ORDERED: NA CHLORIDE 0.9% 1,000 ML ONE (16:48)
[2024-08-09 16:49] LABS: Absolute Eosinophils 0.1 K/uL (0-0.5); Absolute Lymphocytes (CBC) 3.1 K/uL (0.7-4.9); Absolute Monocytes 0.6 K/uL (0.1-1.3); Basophils % 0.5 % (0-1.3); Eosinophils % 0.9 % (0-4.4); Hematocrit 42.5 % (36.0-45.0); Hemoglobin 14.8 g/dL (12.0-15.0); Lymphocytes % 40.2 % (15.3-44.8); MCH 33.7 pg (27.0-35.0); MCHC 34.8 g/dL (32.0-36.0); MCV 96.7 fL (80-100); Monocytes % 7.7 % (3.3-12.3); Neutrophils % 50.7 % (41.7-73.7); Nucleated Red Blood Cells % 0.2 % (0-0); Platelets 343 thou/uL (152-406); Red Cell Distribution Width 13.6 % (12.1-15.2)
[2024-08-09 16:56] LABS: Specific Gravity 1.008 (1.005-1.030); Urine Bacteria <20 /HPF (<20); Urine Bilirubin NEGATIVE (Negative); Urine Blood 2+ (Negative); Urine Clarity Turbid (Clear); Urine Color Light-Yellow (Yellow); Urine Crystals Unidentified Few /HPF (None Seen); Urine Culture Reflex Order NOT NEEDED; Urine Glucose NEGATIVE (Negative); Urine Ketones NEGATIVE (Negative); Urine Microscopic Reflex YN ORDER UMIC; Urine Mucus Slight /HPF (None Seen); Urine Nitrite NEGATIVE (Negative); Urine Protein NEGATIVE (Negative); Urine Urobilinogen Normal (Normal); Urine WBC <5 /HPF (<5)
[2024-08-09 17:01] LABS: ALT/SGPT 23 U/L (13-56); Albumin/Globulin Ratio 1.1 (1.1-1.8); Alkaline Phosphatase 77 U/L (45-117); BUN Blood Urea Nitrogen 7 mg/dL (7-18); Bicarbonate 26 mEq/L (21-32); Bilirubin Total 0.4 mg/dL (0.2-1.0); Globulin 3.7 g/dL (2.3-3.5); Glomerular Filtration Rate 106 ml/min (=/>90); Glucose Level 107 mg/dL (74-106); Lipase 56 U/L (13-75); Protein, Total 7.7 g/dL (6.4-8.2); Sodium Level 138 mEq/L (136-145)
[2024-08-09 17:02] LABS: AST/SGOT < 10 U/L (15-37)
[2024-08-09 17:07] LABS: SARS-CoV-2 Antigen CONTROL BLUE LINE VIS/BG OK; SARS-CoV-2 Antigen Rapid Res Negative (Negative)
--- NOTE | 2024-08-09 18:19 | RAD REPORT ---
EXAMINATION: CT ABDOMEN AND PELVIS WITH CONTRAST CLINICAL INDICATION: Female, 54 years old. [facility] MAIN ABD PAIN [place]. CONSTIPATION TECHNIQUE: CT abdomen and pelvis was performed, after the administration of IV contrast, as per [facility] protocol. Axial, sagittal and coronal reconstructions were obtained. One or more of the following dose reduction techniques were used: Automated exposure control, adjustment of the mA and k V according to patient size, and iterative reconstruction. Unless otherwise specified, incidental findings do not require dedicated imaging follow-up. COMPARISON: No prior exam. FINDINGS: LOWER CHEST: The visualized lung bases are clear. LIVER: Normal in size and contour. No focal lesion. SPLEEN: Normal size. No focal lesion. PANCREAS: No mass, ductal dilation, or earl-pancreatic fluid. ADRENALS: Normal; no mass. KIDNEYS: Normal size and contour. No hydronephrosis. GASTROINTESTINAL TRACT: No evidence of free air, significant intra-abdominal free fluid, bowel obstru ction or abscess. APPENDIX: Normal appendix. LYMPH NODES: No lymphadenopathy. MUSCULOSKELETAL: Mild multilevel spinal degenerative changes. ADDITIONAL FINDINGS: None. IMPRESSION: No acute or concerning abnormalities seen in the abdomen or pelvis.
--- NOTE | 2024-08-09 18:31 | EDPHYS ---
Physician Documentation [facility] Name: Debo Foster Age: 54 yrs Sex: Female : 1970 Arrival Date: 08/09/2024 Time: 15:28 Bed 14 Private MD: ED Physician Jarad Dunbar HPI: 08/09 16:13 This 54 yrs old Female presents to ER via Ambulatory with complaints of sb4 chills, Abdominal Pain. 16:13 patient reports intermittent chills and body aches x 3 days. states she started sb4 experiencing epigastric abdominal pain. additionally, she states she has a cough, store throat, and few episodes of nausea vomiting. states she has chronic constipation due to her psych meds but had a BM this morning. 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 - Infectious Disease History:: Denies. - Social history:: Smoking status: Patient denies any tobacco usage or history of. ROS: 16:13 Cardiovascular: Negative for chest pain, palpitations, and edema, sb4 16:13 Constitutional: Positive for body aches, chills, fever, 16:13 ENT: Positive for sore throat, 16:13 Respiratory: Positive for cough, 16:13 Abdomen/GI: Positive for abdominal pain, nausea and vomiting, constipation, 16:13 All other systems are negative, Exam: 16:13 Constitutional: This is a well developed, well nourished patient who is awake, alert, sb4 and in no acute distress. Head/Face: Normocephalic, atraumatic. Eyes: Extra-ocular motions intact. Periorbital areas with no swelling, redness, or edema. ENT: Mucous membranes moist. Cardiovascular: Regular rate and rhythm with a normal S1 and S2. Respiratory: Lungs have equal breath sounds bilaterally, clear to auscultation and percussion. No rales, rhonchi or wheezes noted. No increased work of breathing, no retractions or nasal flaring. Abdomen/GI: Soft, non-tender, no distension. Skin: Warm, dry with normal turgor. Normal color with no rashes, no lesions, and no evidence of cellulitis. 16:13 ENT: Posterior pharynx: erythema, that is moderate, 16:13 Abdomen/GI: Hernia: noted in the umbilical area, incarceration, is not appreciated, tenderness, that is mild, bowel sounds are appreciated on auscultation, Vital Signs: 15:44 BP 132 / 92; Pulse 85; Resp 16; Temp 98.2(O); Pulse Ox 98% on R/A; Weight 63.5 kg; cm10 Height 5 ft. 0 in. ; Pain 7/10; 17:00 BP 122 / 85; Pulse 93; Resp 16; Pulse Ox 98% ; me1 18:00 BP 133 / 93; Pulse 92; Resp 16; Pulse Ox 99% ; me1 15:44 Body Mass Index 27.34 (63.50 kg, 152.4 cm) cm10 15:44 Pain Scale: Adult cm10 MDM: 15:44 Patient medically screened. sb4 18:30 Data reviewed: vital signs, nurses notes, lab test result(s), radiologic studies, and sb4 as a result, I will discharge patient. Counseling: I had a detailed discussion with the patient and/or guardian regarding the historical points, exam findings, and any diagnostic results supporting the discharge/admit diagnosis, lab results, radiology results, to return to the emergency department if symptoms worsen or persist or if there are any questions or concerns that arise at home. 08/09 15:50 Order name: CBC with Diff; Complete Time: 17:14 sb4 08/09 15:50 Order name: CMP; Complete Time: 17:03 sb4 08/09 15:50 Order name: Lipase; Complete Time: 17:03 sb4 08/09 15:50 Order name: Urinalysis w/ reflexes; Complete Time: 16:57 sb4 08/09 15:50 Order name: SARS RAPID; Complete Time: 17:14 sb4 08/09 15:50 Order name: Flu; Complete Time: 17:14 sb4 08/09 15:50 Order name: Strep sb4 08/09 17:09 Order name: Throat Culture EDMS 08/09 15:50 Order name: CT Abd/Pelvis - IV Contrast Only; Complete Time: 18:27 sb4 08/09 15:50 Order name: IV Saline Lock; Complete Time: 16:53 sb4 08/09 15:50 Order name: Labs collected and sent; Complete Time: 16:53 sb4 Administered Medications: 16:53 Drug: NS 0.9% IV 1000 ml IV at 1 bolus Per protocol; 1000 mL bolus Route: IV; Rate: 1 me1 bolus; Site: right antecubital; 18:21 Follow up: Response: No adverse reaction; IV Status: Completed infusion; IV Intake: me1 100ml 16:53 Drug: TORadol - Ketorolac IVP 15 mg IVP once Route: IVP; Site: right antecubital; me1 18:21 Follow up: Response: No adverse reaction; Pain is decreased me1 Disposition Summary: 08/09/24 18:30 Discharge Ordered Notes: Location: Home sb4 Problem: new sb4 Symptoms: are resolved sb4 Condition: Stable sb4 Diagnosis - Upper abdominal pain, unspecified sb4 - Viral infection, unspecified sb4 Followup: sb4 - With: Private Physician - When: As needed - Reason: Recheck today's complaints, Re-evaluation by your physician Discharge Instructions: - Discharge Summary Sheet sb4 - Abdominal Pain, Adult sb4 - Pain Without a Known Cause sb4 - Viral Illness, Adult sb4 Forms: - Patient Portal Instructions sb4 - Leadership Thank You Letter sb4 Signatures: Dispatcher [employer] Jacy Salinas PA-C PA-C sb4 Marie Capellan RN RN cm10 Asha Gibson, MEAGHAN RN me1 Corrections: (The following items were deleted from the chart) 15:50 15:50 Abdomen Pelvis W Con+CT.RAD.BRZ ordered. KVNG CALDERON
--- NOTE | 2024-08-09 18:31 | ER ---
Nurse's Notes [facility] Name: Debo Foster Age: 54 yrs Sex: Female : 1970 Arrival Date: 08/09/2024 Time: 15:28 Bed 14 Private MD: Diagnosis: Upper abdominal pain, unspecified;Viral infection, unspecified Presentation: 08/09 15:44 Chief complaint: Patient states: Chills, abdominal pain, and constipation X2 days. cm10 Coronavirus screen: Client denies travel out of the [place] in the last 14 days. Ebola Screen: Patient denies travel to an Ebola-affected area in the 21 days before illness onset. No symptoms or risks identified at this time. Initial Sepsis Screen: Does the patient meet any 2 criteria? No. Patient's initial sepsis screen is negative. Does the patient have a suspected source of infection? No. Patient's initial sepsis screen is negative. Risk Assessment: Do you want to hurt yourself or someone else? Patient reports no desire to harm self or others. Onset of symptoms was August 09, 2024. 15:44 Method Of Arrival: Ambulatory cm10 15:44 Acuity: CELIO 3 cm10 Triage Assessment: 15:46 General: Appears in no apparent distress. comfortable, Behavior is calm, cooperative. cm10 Neuro: No deficits noted. Level of Consciousness is awake, alert, obeys commands, Oriented to person, place, time, situation, Appropriate for age. Respiratory: No deficits noted. Airway is patent Respiratory effort is even, unlabored, Respiratory pattern is regular, symmetrical. GI: Reports lower abdominal pain, upper abdominal pain, constipation. 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 - Infectious Disease History:: Denies. - Social history:: Smoking status: Patient denies any tobacco usage or history of. Screenin:00 [facility] ED Fall Risk Assessment (Adult) History of falling in the last 3 months, me1 including since admission No falls in past 3 months (0 pts) Confusion or Disorientation No (0 pts) Intoxicated or Sedated No (0 pts) Impaired Gait No (0 pts) Mobility Assist Device Used No (0 pt) Altered Elimination No (0 pt) Score/Fall Risk Level 0 - 2 = Low Risk Maintained a safe environment, Provided non-skid footwear, Hourly rounding (assess needs \T\ fall precautionary measures) done. Abuse screen: Denies threats or abuse. Nutritional screening: No deficits noted. Tuberculosis screening: No symptoms or risk factors identified. Assessment: 16:00 General: Appears uncomfortable, ill, well groomed, well developed, well nourished, me1 Behavior is calm, cooperative, appropriate for age, Reports Chills, abdominal pain, and constipation X2 days. Pain: Complains of pain in umbilical area Pain does not radiate. Pain currently is 7 out of 10 on a pain scale. Quality of pain is described as crampy, Pain began gradually, Is continuous. Neuro: Level of Consciousness is awake, alert, obeys commands, Oriented to person, place, time, situation, Appropriate for age. Cardiovascular: Patient's skin is warm and dry. Respiratory: Airway is patent Respiratory effort is even, unlabored, Respiratory pattern is regular, symmetrical. GI: Abdomen is non-distended, Bowel sounds present X 4 quads. Reports upper abdominal pain, constipation. : No signs and/or symptoms were reported regarding the genitourinary system. EENT: No signs and/or symptoms were reported regarding the EENT system. Derm: Skin is intact, is healthy with good turgor, Skin is pink, warm \T\ dry. Musculoskeletal: No signs and/or symptoms reported regarding the musculoskeletal system. Vital Signs: 15:44 BP 132 / 92; Pulse 85; Resp 16; Temp 98.2(O); Pulse Ox 98% on R/A; Weight 63.5 kg; cm10 Height 5 ft. 0 in. ; Pain 7/10; 17:00 BP 122 / 85; Pulse 93; Resp 16; Pulse Ox 98% ; me1 18:00 BP 133 / 93; Pulse 92; Resp 16; Pulse Ox 99% ; me1 15:44 Body Mass Index 27.34 (63.50 kg, 152.4 cm) cm10 15:44 Pain Scale: Adult cm10 ED Course: 15:31 Patient arrived in ED. im 15:35 Jacy Conklin PA-C is PHCP. sb4 15:35 Jarad Dunbar MD is Attending Physician. sb4 15:45 Triage completed. cm10 15:46 Arm band placed on Patient placed in waiting room. cm10 16:00 Patient has correct armband on for positive identification. Bed in low position. Call me1 light in reach. Side rails up X 1. Provided Education on: POC. Verbalized understanding. . Client placed on continuous cardiac and pulse oximetry monitoring. NIBP monitoring applied. Pulse ox on. NIBP on. 16:00 No provider procedures requiring assistance completed. me1 16:03 Radiology exam delayed due to IV insertion attempt and/or patient not having nj appropriate IV at this time. 16:03 Radiology exam delayed due to lab results not completed at this time. (BUN/Creatinine). nj 16:20 Asha Gibson, RN is Primary Nurse. me1 16:53 Strep Sent. me1 16:53 Flu Sent. me1 16:53 SARS RAPID Sent. me1 16:53 Initial lab(s) drawn, by ED staff, sent to lab. Urine collected: clean catch specimen, me1 cloudy, COVID swab sent to lab. Flu and/or RSV swab sent to lab. Strep swab sent to lab. Inserted saline lock: 20 gauge in right antecubital area, using aseptic technique. 17:28 CT Abd/Pelvis - IV Contrast Only In Process Unspecified. EDMS 18:51 IV discontinued, intact, bleeding controlled, No redness/swelling at site. Pressure me1 dressing applied. Administered Medications: 16:53 Drug: NS 0.9% IV 1000 ml IV at 1 bolus Per protocol; 1000 mL bolus Route: IV; Rate: 1 me1 bolus; Site: right antecubital; 18:21 Follow up: Response: No adverse reaction; IV Status: Completed infusion; IV Intake: me1 100ml 16:53 Drug: TORadol - Ketorolac IVP 15 mg IVP once Route: IVP; Site: right antecubital; me1 18:21 Follow up: Response: No adverse reaction; Pain is decreased me1 Medication: 16:00 VIS not applicable for this client. me1 Intake: 18:21 IV: 100ml; Total: 100ml. me1 Outcome: 18:30 Discharge ordered by . sb4 18:51 Discharged to home ambulatory, me1 18:51 Condition: stable 18:51 Discharge instructions given to patient, Instructed on discharge instructions, follow up and referral plans. Demonstrated understanding of instructions, follow-up care, 18:52 Patient left the ED. me1 Signatures: Dispatcher [employer] EDFranc Arellano Sophia, PA-C PAMayte sb4 Inessa Moscoso Clarissa, RN RN cm10 Asha Gibson RN RN me1 Corrections: (The following items were deleted from the chart) 16:56 15:44 Chief complaint: Patient states: Chills, abdominal pain, and constipation X2 me1 days. cm10
[2024-08-09 19:09] VITALS: TEMP 98.2
[2024-08-09 19:11] VITALS: BP 133/93; O2SAT 99
== END 2024-08-09 18:52 | disposition home or self-care (01) ==
LOC: ER 15:28
DX: B34.9 Viral infection, unspecified (principal); Z11.52 Encounter for screening for COVID-19
CPT/HCPCS: 96361; 87070; 85025; 81001; 36415; 87081; 83690; 80053; 87804 ×2; 74177; 96374; 99284; 87811; Q9967; J7030